=== PATIENT | female | born 1955 | race African-American/Black ===

== ENCOUNTER 2016-08-14 18:25 | Inpatient (IN) | payer OTHER ==
[~2016-08-14] VITALS: Ht 165.1 cm; Wt 62.6 kg
[2016-08-14 19:01] LABS: BASOPHILS # (AUTO) 0.1 /CMM (0.0-0.2); BASOPHILS % (AUTO) 0.5 % (0.0-2.0); DIFF TOTAL % 100 %; EOSINOPHILS # (AUTO) 0.2 /CMM (0.0-0.7); EOSINOPHILS % (AUTO) 1.5 % (0.0-6.0); HEMATOCRIT 35 % (33-45); HEMOGLOBIN 11.9 g/dL (11.5-14.8); LYMPHOCYTES # (AUTO) 0.8 /CMM (0.8-4.8); LYMPHOCYTES % (AUTO) 6.2 % (20.0-44.0); MEAN CORPUSCULAR HEMOGLOBIN 30 PG (26.0-33.0); MEAN CORPUSCULAR HGB CONC 34 g/dl (31.0-36.0); MEAN CORPUSCULAR VOLUME 91 fL (82-100); MONOCYTES # (AUTO) 0.8 /CMM (0.1-1.30); MONOCYTES % (AUTO) 5.9 % (2.0-12.0); NEUTROPHILS # (AUTO) 11.2 /CMM (1.8-8.9); NEUTROPHILS % (AUTO) 85.9 % (43.0-81.0); PLATELET COUNT (AUTO) 226 /CMM (150-450); RED BLOOD CELL COUNT(AUTO) 3.91 MIL/uL (4.0-5.2); WHITE BLOOD COUNT (AUTO) 13.1 K/uL (4.3-11.0)
[2016-08-14 19:12] LABS: CALCIUM, SERUM 8.8 mg/dL (8.5-10.1); CREATININE 6.5 mg/dL (0.6-1.3); POTASSIUM 5.4 mmol/L (3.5-5.1)
[2016-08-14] MEDS ORDERED: HYDROCODONE/APAP 5/325MG 1 EACH TABLET PO PRN (19:30)
[2016-08-14] MEDS ORDERED: Z GUARD REMEDY 2 OZ OINT TP PRN (19:30)
[2016-08-14] MEDS ORDERED: ONDANSETRON HCL/PF 4 MG/2 ML VIAL IVP PRN (19:30)
[2016-08-14] MEDS ORDERED: ZOLPIDEM TARTRATE 5 MG TABLET PO PRN (19:30)
[2016-08-14] MEDS ORDERED: ACETAMINOPHEN 325 MG TABLET PO PRN (19:30)
[2016-08-14 20:18] LABS: INR 1.13 (0.87-1.13); PARTIAL THROMBOPLASTIN TIME > 170 SEC (23-34); PROTHROMBIN TIME 12.2 SECS (9.5-12.7)
[2016-08-14 21:28] VITALS: BP 120/64
[2016-08-14] MEDS ORDERED: CLONIDINE HCL 0.1 MG TABLET PO PRN (22:30)
[2016-08-14] MEDS ORDERED: INSULIN REGULAR, HUMAN 100 UNIT/ML 3 ML VIAL SQ PRN (22:30)
[2016-08-14] MEDS ORDERED: DEXTROSE 50%-WATER 50 ML DISP.SYRIN IV PRN (22:30)
[2016-08-14] MEDS ORDERED: SODIUM POLYSTYRENE SULFONATE 15 G/60 ML BOTTLE PO ONE (23:00)
[2016-08-14] MEDS ORDERED: PHYTONADIONE INJ 10 MG/1 ML AMPUL SQ ONE (23:00)
[2016-08-14] MEDS ORDERED: PHYTONADIONE INJ 10 MG/1 ML AMPUL ONE (23:13)
[2016-08-14] MEDS: BLOOD SUGAR DIAGNOSTIC 1 EACH STRIP IN SCH (23:19)
[2016-08-14] MEDS ORDERED: SODIUM POLYSTYRENE SULFONATE 15 G/60 ML BOTTLE ONE (23:22)
[2016-08-15] MEDS ORDERED: DOCU-170 PO (03:35)
[2016-08-15] MEDS ORDERED: DOCU100T2 PO (03:35)
[2016-08-15] MEDS ORDERED: OMEP20CA10 PO (03:35)
[2016-08-15] MEDS ORDERED: AMLO10TA4 PO (03:35)
[2016-08-15] MEDS ORDERED: FOLI1TAB16 PO (03:35)
[2016-08-15] MEDS ORDERED: IPRA3AMP IH (03:35)
[2016-08-15] MEDS ORDERED: DIPH-4 PO (03:35)
[2016-08-15] MEDS ORDERED: HYDR-4077 PO (03:35)
[2016-08-15] MEDS ORDERED: BENA20TA2 PO (03:35)
[2016-08-15] MEDS ORDERED: VIT1TABL46 PO (03:35)
[2016-08-15] MEDS ORDERED: RIFA300C4 PO (03:35)
[2016-08-15] MEDS ORDERED: CLON0.2T PO (03:35)
[2016-08-15] MEDS ORDERED: LORA1TAB82 PO (03:35)
[2016-08-15 04:00] VITALS: BP 134/65
[2016-08-15 07:07] LABS: BASOPHILS # (AUTO) 0.1 /CMM (0.0-0.2); BASOPHILS % (AUTO) 0.6 % (0.0-2.0); DIFF TOTAL % 100 %; EOSINOPHILS # (AUTO) 0.4 /CMM (0.0-0.7); EOSINOPHILS % (AUTO) 3.3 % (0.0-6.0); HEMATOCRIT 33 % (33-45); HEMOGLOBIN 11.1 g/dL (11.5-14.8); LYMPHOCYTES # (AUTO) 2.7 /CMM (0.8-4.8); LYMPHOCYTES % (AUTO) 23.2 % (20.0-44.0); MEAN CORPUSCULAR HEMOGLOBIN 31 PG (26.0-33.0); MEAN CORPUSCULAR HGB CONC 33 g/dl (31.0-36.0); MEAN CORPUSCULAR VOLUME 91 fL (82-100); MONOCYTES # (AUTO) 0.8 /CMM (0.1-1.30); MONOCYTES % (AUTO) 7.2 % (2.0-12.0); NEUTROPHILS # (AUTO) 7.6 /CMM (1.8-8.9); NEUTROPHILS % (AUTO) 65.7 % (43.0-81.0); PLATELET COUNT (AUTO) 212 /CMM (150-450); RED BLOOD CELL COUNT(AUTO) 3.63 MIL/uL (4.0-5.2); WHITE BLOOD COUNT (AUTO) 11.6 K/uL (4.3-11.0)
[2016-08-15 07:28] LABS: CALCIUM, SERUM 9.1 mg/dL (8.5-10.1); POTASSIUM 5.4 mmol/L (3.5-5.1)
[2016-08-15] MEDS: BLOOD SUGAR DIAGNOSTIC 1 EACH STRIP IN SCH ×4 (07:30→22:35)
[2016-08-15 07:32] LABS: CREATININE 7.5 mg/dL (0.6-1.3)
[2016-08-15 08:00] VITALS: BP 136/60
[2016-08-15] MEDS: PANTOPRAZOLE 40 MG VIAL IV SCH (10:02)
[2016-08-15] MEDS ORDERED: ALTEPLASE CATHFLO 2 MG/VIAL XX STA (13:47)
[2016-08-15] MEDS ORDERED: SODIUM POLYSTYRENE SULFONATE 15 G/60 ML BOTTLE PO ONE (15:00)
[2016-08-15 16:00] VITALS: BP 117/64
[2016-08-15 19:30] VITALS: BP 144/68
[2016-08-15 20:18] VITALS: BP 144/68
[2016-08-16] MEDS: BLOOD SUGAR DIAGNOSTIC 1 EACH STRIP IN SCH ×4 (06:18→21:48)
[2016-08-16 08:00] VITALS: BP 116/57
[2016-08-16 08:13] LABS: INR 1.05 (0.87-1.13); PROTHROMBIN TIME 11.3 SECS (9.5-12.7)
[2016-08-16 08:16] LABS: BASOPHILS # (AUTO) 0.1 /CMM (0.0-0.2); BASOPHILS % (AUTO) 0.6 % (0.0-2.0); DIFF TOTAL % 100 %; EOSINOPHILS # (AUTO) 0.7 /CMM (0.0-0.7); EOSINOPHILS % (AUTO) 7.7 % (0.0-6.0); HEMATOCRIT 32 % (33-45); HEMOGLOBIN 10.4 g/dL (11.5-14.8); LYMPHOCYTES # (AUTO) 2.4 /CMM (0.8-4.8); LYMPHOCYTES % (AUTO) 28.2 % (20.0-44.0); MEAN CORPUSCULAR HEMOGLOBIN 30 PG (26.0-33.0); MEAN CORPUSCULAR HGB CONC 33 g/dl (31.0-36.0); MEAN CORPUSCULAR VOLUME 91 fL (82-100); MONOCYTES # (AUTO) 0.7 /CMM (0.1-1.30); MONOCYTES % (AUTO) 7.8 % (2.0-12.0); NEUTROPHILS # (AUTO) 4.7 /CMM (1.8-8.9); NEUTROPHILS % (AUTO) 55.7 % (43.0-81.0); PLATELET COUNT (AUTO) 236 /CMM (150-450); RED BLOOD CELL COUNT(AUTO) 3.49 MIL/uL (4.0-5.2); WHITE BLOOD COUNT (AUTO) 8.5 K/uL (4.3-11.0)
[2016-08-16] MEDS: PANTOPRAZOLE 40 MG VIAL IV SCH (08:25)
[2016-08-16 08:38] LABS: CALCIUM, SERUM 8.9 mg/dL (8.5-10.1); POTASSIUM 3.9 mmol/L (3.5-5.1)
[2016-08-16] MEDS ORDERED: HEPARIN SODIUM, PORCINE 1,000 UNIT/ML VIAL ONE (12:02)
[2016-08-16] MEDS ORDERED: LIDOCAINE HCL/PF 1% 30 ML SDV ONE (12:03)
[2016-08-16] MEDS ORDERED: BACITRACIN ZINC OINT (15 GM) 15 GM TUBE TP ONE (13:31)
[2016-08-16 16:00] VITALS: BP 150/63
[2016-08-16 20:00] VITALS: BP 138/64
[2016-08-17 07:21] LABS: BASOPHILS % (AUTO) 0.5 % (0.0-2.0); DIFF TOTAL % 100 %; EOSINOPHILS # (AUTO) 0.5 /CMM (0.0-0.7); EOSINOPHILS % (AUTO) 5.3 % (0.0-6.0); HEMATOCRIT 30 % (33-45); HEMOGLOBIN 10.2 g/dL (11.5-14.8); LYMPHOCYTES # (AUTO) 1.6 /CMM (0.8-4.8); LYMPHOCYTES % (AUTO) 17.4 % (20.0-44.0); MEAN CORPUSCULAR HEMOGLOBIN 30 PG (26.0-33.0); MEAN CORPUSCULAR HGB CONC 34 g/dl (31.0-36.0); MEAN CORPUSCULAR VOLUME 90 fL (82-100); MONOCYTES # (AUTO) 0.7 /CMM (0.1-1.30); MONOCYTES % (AUTO) 7.8 % (2.0-12.0); NEUTROPHILS # (AUTO) 6.3 /CMM (1.8-8.9); PLATELET COUNT (AUTO) 242 /CMM (150-450); RED BLOOD CELL COUNT(AUTO) 3.38 MIL/uL (4.0-5.2); WHITE BLOOD COUNT (AUTO) 9.1 K/uL (4.3-11.0)
[2016-08-17] MEDS: BLOOD SUGAR DIAGNOSTIC 1 EACH STRIP IN SCH ×2 (07:30→12:00)
[2016-08-17 07:49] LABS: CALCIUM, SERUM 9.2 mg/dL (8.5-10.1); CREATININE 6.8 mg/dL (0.6-1.3); POTASSIUM 3.6 mmol/L (3.5-5.1)
[2016-08-17 08:00] VITALS: BP 120/50
[2016-08-17] MEDS: PANTOPRAZOLE 40 MG VIAL IV SCH (09:00)
[2016-08-17 16:00] VITALS: BP 116/53
== END 2016-08-17 18:43 | DRG 173 ==
LOC: ER 18:27 → TELE 20:27 → MED 08-15 11:37
PROVIDERS: ADMIT Internal Medicine; ATTEND Internal Medicine
PROC: 05PY03Z Removal of Infusion Device from Upper Vein, Open Approach (ICD-10-PCS; principal; 2016-08-16 12:59)
PROC: 05HM33Z Insertion of Infusion Device into Right Internal Jugular Vein, Percutaneous Approach (ICD-10-PCS; principal; 2016-08-16 12:59)
PROC: B513YZA Fluoroscopy of Right Jugular Veins using Other Contrast, Guidance (ICD-10-PCS; principal; 2016-08-16 12:59)
PROC: 5A1D00Z (ICD-10-PCS; principal; 2016-08-16 12:59)
DX: T82.41XA Breakdown (mechanical) of vascular dialysis catheter, initial encounter (principal); G93.40 Encephalopathy, unspecified; R53.2 Functional quadriplegia; N18.6 End stage renal disease; E87.2 Acidosis; Y84.1 Kidney dialysis as the cause of abnormal reaction of the patient, or of later complication, without mention of misadventure at the time of the procedure; Y92.9 Unspecified place or not applicable; Z99.2 Dependence on renal dialysis; I13.11 Hypertensive heart and chronic kidney disease without heart failure, with stage 5 chronic kidney disease, or end stage renal disease; E78.5 Hyperlipidemia, unspecified; K21.9 Gastro-esophageal reflux disease without esophagitis; E87.1 Hypo-osmolality and hyponatremia; J98.11 Atelectasis; E87.5 Hyperkalemia; D72.829 Elevated white blood cell count, unspecified; Y71.2 Prosthetic and other implants, materials and accessory cardiovascular devices associated with adverse incidents
CPT/HCPCS: 36415; 71010-TC; 80048-TC; 80061-TC; 82962-TC; 83735-TC; 84100-TC; 85025-TC; 85610-TC; 85730-TC; 87040-TC; 87081-TC; 90935-TC; A4606; A6402; C1750; C1769; C9113; J1644; J1815; J2997; J3430; J3490; Z7610

== ENCOUNTER 2019-11-04 15:37 | Inpatient (IN) | payer MEDICARE, OTHER ==
[~2019-11-04] VITALS: Ht 165.1 cm; Wt 60.0 kg
[~2019-11-04 15:37] MED LIST: AMLO10TA4 PO; BENA20TA9 PO; CLON0.2T PO; DIPH-4 PO; DOCU100C36 PO; DOCU100T2 PO; FOLI1TAB16 PO; HYDR-4077 PO; IPRA3AMP22 IH; LORA-259 PO; OMEP20CA15 PO; RIFA300C4 PO; VIT1TABL46 PO
--- NOTE | 2019-11-04 16:02 | NUR ---
Nohemi payton in [facility] - 11/04/19 at 1603 by BERNABE ANUP YOUSIF PRESENT FOR COMMUNICATION PURPOSES
--- NOTE | 2019-11-04 16:03 | NUR ---
ANUP CAREGIVER PRESENT FOR COMMUNICATION PURPOSES
[2019-11-04] MEDS ORDERED: ACETAMINOPHEN 650 MG/SUPP.RECT RC ONE ×2 (16:18→20:00)
[2019-11-04] MEDS: ACETAMINOPHEN ES 500 MG TABLET PO ONE ×2 (16:30→17:06)
--- NOTE | 2019-11-04 17:15 | NUR ---
CARLITO FROM [facility] TO ER BED 5. NON VERBAL. NOT IN RESP DISTRESS. BORUGHT IN FOR NON PRODUDCTIVE COUGH AND FEVER SINCE THIS MORNING. PER REPORT, PT HAD A TEMP OF 100.1. NO MEDS GIVEN. MD WAS AT BEDSIDE FOR EVAL. ORDERS RECEIVED NOTED AND CARRIED OUT. IV LINE OBTAINED ON L HAND 22G. URINE COLLECTED VIA IN AND OUT CATH WITH STRICT STERILE TECHNIQUE. EKG AND XRAY DONE AT BEDSIDE. COVID AND FLU SWAB DONE.
--- NOTE | 2019-11-04 17:20 | NUR ---
SENIOR MECHANICAL ENGINEER AT BEDSIDE FOR BLOOD DRAW
[2019-11-04 17:39] LABS: BASOPHILS % (AUTO) 0.4 % (0.0-2.0); EOSINOPHILS % (AUTO) 0.5 % (0.0-6.0); HEMATOCRIT 26 % (33-45); HEMOGLOBIN 8.4 g/dL (11.5-14.8); LYMPHOCYTES # (AUTO) 1.6 /CMM (0.8-4.8); LYMPHOCYTES % (AUTO) 39.3 % (20.0-44.0); MEAN CORPUSCULAR HGB CONC 33 g/dl (31.0-36.0); MEAN CORPUSCULAR VOLUME 89 fL (82-100); MONOCYTES # (AUTO) 0.5 /CMM (0.1-1.30); MONOCYTES % (AUTO) 13.5 % (2.0-12.0); NEUTROPHILS # (AUTO) 1.9 /CMM (1.8-8.9); NEUTROPHILS % (AUTO) 46.3 % (43.0-81.0); PLATELET COUNT (AUTO) 108 /CMM (150-450)
[2019-11-04 18:00] LABS: CREATININE 6.9 mg/dL (0.6-1.3); POTASSIUM 3.7 mmol/L (3.5-5.1)
[2019-11-04 18:03] LABS: D-DIMER 0.97 mg/L(FEU (0.17-0.50)
[2019-11-04 18:04] LABS: ALBUMIN 2.8 g/dL (3.4-5.0); BILIRUBIN,TOTAL 0.2 mg/dL (0.2-1.0); TOTAL PROTEIN, SERUM 6.8 g/dL (6.4-8.2)
--- NOTE | 2019-11-04 18:34 | NUR ---
BP NOTED AT 86/57 HR 58. MADE AWARE
[2019-11-04] MEDS ORDERED: INSU100V42 (18:45)
[2019-11-04] MEDS ORDERED: FOLI0.8C PO (18:45)
[2019-11-04] MEDS ORDERED: CLON1PAT TD (18:45)
[2019-11-04] MEDS ORDERED: CHOL400T11 PO (18:45)
[2019-11-04] MEDS ORDERED: QUET25TA PO (18:45)
[2019-11-04] MEDS ORDERED: SEVE2.4P PO (18:45)
[2019-11-04] MEDS ORDERED: APIX5TAB PO (18:45)
[2019-11-04] MEDS ORDERED: VIT1TABL46 PO (18:45)
[2019-11-04] MEDS ORDERED: DEXT15DR6 OP (18:45)
[2019-11-04] MEDS ORDERED: POLY17PO4 PO (18:45)
[2019-11-04] MEDS ORDERED: SODI100037 PO (18:45)
--- NOTE | 2019-11-04 18:48 | NUR ---
RT INFORMED OF ABG ORDER
[2019-11-04] MEDS ORDERED: CEFEPIME 1 GM in IV D5W 50 ML IV ONE (20:00)
[2019-11-04 20:04] LABS: APPEARANCE,URINE CLOUDY (CLEAR); BILIRUBIN,URINE NEGATIVE (NEGATIVE); BLOOD, URINE SMALL Ery/uL (NEGATIVE); COLOR,URINE YELLOW (YELLOW); KETONES,URINE NEGATIVE (NEGATIVE); LEUKOCYTE ESTERASE ,URINE LARGE (NEGATIVE); NITRITE, URINE NEGATIVE (NEGATIVE); PROTEIN,URINE 30 mg/dl (NEGATIVE); UGLUCOSE NEGATIVE (NEGATIVE); UROBILINOGEN,URINE 0.2 EU/dL (0.2)
[2019-11-04 20:13] LABS: BACTERIA,URINE Many /HPF (None Seen); SQUAMOUS EPITHELIAL CELL,UR Many /HPF (None Seen); WBC,URINE 81-100 /HPF (0-3)
[2019-11-04 20:17] LABS: C-REACTIVE PROTEIN 2.8 mg/dL (0.0-0.9)
[2019-11-04 20:19] LABS: ABG BASE EXCESS -4.4 mmol/L; ABG OXYGEN SATURATION 98.2 % (92.0-98.5); ABG PCO2 37.4 mmHg (35.0-45.0); ABG PH 7.359 (7.350-7.450); ABG PO2 147.9 mmHg (75.0-100.0); AaDO2 7.6 mmHg; COHb 0.4 % (0.5-1.5); MetHb 0.5 % (0.0-1.5); O2Hb 97.3 % (94.0-97.0); SITE, ABG Left Radial; VENT MODE, BG 2 LNC
--- NOTE | 2019-11-04 20:38 | NUR ---
UPGRADED TO JT PER HOSPITALIST, CALLED TO CHANGE BED
[2019-11-04] MEDS ORDERED: CEFEPIME 1 GM VIAL ONE (20:46)
--- NOTE | 2019-11-04 21:10 | NUR ---
REPORT GIVEN TO CLAUDE CASSIDY FOR EMILY.
--- NOTE | 2019-11-04 21:11 | NUR ---
JT RN NOTES REPORT RECEIVED FROM ED RN MARIA. AWAITING ADMISSION TO 115 WITH R/O COVID, DROPLET ISOLATION PRECAUTIONS
--- NOTE | 2019-11-04 21:31 | NUR ---
RECTAL TEMP 98.4
--- NOTE | 2019-11-04 21:32 | NUR ---
PT TRANSPORTED TO UNIT ON [facility] W/ EMT AND RN AT BEDSIDE. NAD NOTED
[2019-11-04 21:35] VITALS: BP 102/68
--- NOTE | 2019-11-04 21:35 | NUR ---
JT RN NOTES RECEIVED PT VIA KG FROM ED WITH RN MARIA. NAD. ON NC WITH 2L EMIGDIO WELL NO SOB. AOX0, NON-VERBAL WITH SPONTANEOUS EYE OPENING. PT PUT ON TELE MONITOR, WITH SR. INCONTINENT OF BOWEL AND URINE WITH DIAPER ON. PT IS BB. BUE WITH CONTRACTURES, BLE WITH SEVERE WEAKNESS. L UPPER THIGH NOTED TO HAVE HD CATH WITH DRESSING INTACT. L HAND WITH SL 22G. BED IN LOCKED AND IN LOWEST POSITION. ALL SAFETY MEASURES IN PLACE. WILL CONT TO MONITOR.
[2019-11-04] MEDS ORDERED: ZOLPIDEM TARTRATE 5 MG TABLET PO PRN (22:00)
[2019-11-04] MEDS ORDERED: Z GUARD REMEDY 2 OZ OINT TP PRN (22:00)
[2019-11-04] MEDS: CEFTRIAXONE 1 G in IV D5W 50 ML IV SCH (22:00)
[2019-11-04] MEDS ORDERED: DEXTROSE 50%-WATER 50 ML DISP.SYRIN IV PRN (22:30)
[2019-11-04] MEDS ORDERED: CEFTRIAXONE 1 G VIAL ONE (23:41)
[2019-11-05] VITALS: BP 121/61
[2019-11-05] MEDS: BLOOD SUGAR DIAGNOSTIC 1 EACH STRIP IN SCH ×4 (01:14→17:53)
[2019-11-05 04:00] VITALS: BP 132/66
--- NOTE | 2019-11-05 05:40 | NUR ---
0063 ANTONY DAY MADE AWARE OF BS 50. NO ORDER MADE. PATIENT ASYMPTOMATIC AND ABLE TO TOLERATE JUICE AND PUDDING. DENIES ANY DISCOMFORT. HOB ELEVATED AT ALL TIMES FOR ASPIRATION PRECAUTION. PATIENT IS BEING CLOSELY MONITORED.
[2019-11-05] MEDS: HYDROCODONE/APAP 5/325MG 1 EACH TABLET PO PRN ×2 (06:09→21:47)
--- NOTE | 2019-11-05 06:28 | NUR ---
0628 BS RE CHECKED AND OBTAINED 111MG/DL RESULT. PATIENT ASLEEP BUT EASILY AROUSABLE. NO SIGNS OF HYPOGLYCEMIA NOTED.
[2019-11-05 06:32] LABS: BASOPHILS % (AUTO) 0.5 % (0.0-2.0); EOSINOPHILS % (AUTO) 0.6 % (0.0-6.0); HEMATOCRIT 28 % (33-45); HEMOGLOBIN 9.2 g/dL (11.5-14.8); LYMPHOCYTES # (AUTO) 1.2 /CMM (0.8-4.8); LYMPHOCYTES % (AUTO) 25.1 % (20.0-44.0); MEAN CORPUSCULAR HGB CONC 33 g/dl (31.0-36.0); MEAN CORPUSCULAR VOLUME 88 fL (82-100); MONOCYTES # (AUTO) 0.5 /CMM (0.1-1.30); MONOCYTES % (AUTO) 10.4 % (2.0-12.0); NEUTROPHILS % (AUTO) 63.4 % (43.0-81.0); PLATELET COUNT (AUTO) 134 /CMM (150-450); WHITE BLOOD COUNT (AUTO) 4.8 K/uL (4.3-11.0)
--- NOTE | 2019-11-05 06:33 | NUR ---
JT RN NOTES PT IN BED. NO SOB, NAD. ON 2LPM O2 VIA NC. ON TELE MONITOR WITH SR. BARAHONA CATH BAG TO THE GRAVITY WITH 10CC, CLOUDY OUTPUT. NEW DIET ORDER FROM [facility] VERDUGO FOR RENAL/PUREE DIET IN PLACE. BED IN LOWEST POSITION. ALL SAFETY MEASURES IN PLACE. WILL ENDORSE TO THE ONCOMING RN
[2019-11-05 07:17] LABS: CALCIUM, SERUM 8.6 mg/dL (8.5-10.1); MAGNESIUM 2.4 mg/dL (1.8-2.4); PHOSPHORUS 5.8 mg/dL (2.5-4.9); POTASSIUM 4.1 mmol/L (3.5-5.1)
[2019-11-05 07:30] LABS: CREATININE 7.8 mg/dL (0.6-1.3)
[2019-11-05 08:00] VITALS: BP 90/43
[2019-11-05 12:00] VITALS: BP 116/62
[2019-11-05 16:00] VITALS: BP 116/57
[2019-11-05 20:00] VITALS: BP 112/45
[2019-11-05] MEDS ORDERED: CEFTRIAXONE 1 G VIAL ONE (21:32)
[2019-11-05] MEDS: CEFTRIAXONE 1 G in IV D5W 50 ML IV SCH (21:48)
--- NOTE | 2019-11-05 22:20 | NUR ---
SCRATCH BRUSHER NOTES CEFTRIAXONE DUE AT 2200. THE IVPB IN THE CASSETTE IS DAMAGED AND LEAKING. WENT TO ED AND OBTAINED THE EXACT MED PRESCRIBED FROM MARIA PETERS RN. ADMINISTERED ON TIME, EMIGDIO WELL. WILL CONT TO MONITOR
[2019-11-06] VITALS (10 sets, daily range): BP systolic 100–144; BP diastolic 38–77
[2019-11-06] MEDS: BLOOD SUGAR DIAGNOSTIC 1 EACH STRIP IN SCH ×5 (00:28→23:28)
[2019-11-06 06:46] LABS: BASOPHILS % (AUTO) 0.5 % (0.0-2.0); EOSINOPHILS % (AUTO) 0.2 % (0.0-6.0); HEMATOCRIT 25 % (33-45); HEMOGLOBIN 8.1 g/dL (11.5-14.8); LYMPHOCYTES # (AUTO) 1.3 /CMM (0.8-4.8); LYMPHOCYTES % (AUTO) 25.8 % (20.0-44.0); MEAN CORPUSCULAR HGB CONC 33 g/dl (31.0-36.0); MEAN CORPUSCULAR VOLUME 88 fL (82-100); MONOCYTES # (AUTO) 0.5 /CMM (0.1-1.30); MONOCYTES % (AUTO) 10.5 % (2.0-12.0); NEUTROPHILS # (AUTO) 3.3 /CMM (1.8-8.9); PLATELET COUNT (AUTO) 118 /CMM (150-450); RED BLOOD CELL COUNT(AUTO) 2.81 MIL/uL (4.0-5.2); WHITE BLOOD COUNT (AUTO) 5.2 K/uL (4.3-11.0)
[2019-11-06 06:55] LABS: CALCIUM, SERUM 8.2 mg/dL (8.5-10.1); MAGNESIUM 2.4 mg/dL (1.8-2.4); PHOSPHORUS 6.4 mg/dL (2.5-4.9); POTASSIUM 3.9 mmol/L (3.5-5.1)
[2019-11-06 07:00] LABS: CREATININE 10.2 mg/dL (0.6-1.3)
--- NOTE | 2019-11-06 07:25 | NUR ---
Rn opening note: Received patient in bed and asleep. appears comfortable and relaxed. On cont. o2 via NC at @2lpm with 95% noted. Not in respiratory distress. NO SOB noted. IV sites clean, dry, patent and intact. Tele monitoring showing sinus rhythm noted. No pain noted. call light in reach. Bed locked, low and at semi-munguia's position. side rails up x3. safety ensured and observed. will continue to monitor.
[2019-11-06] MEDS ORDERED: FEE PK DOSING 1 MIN EA MC ONE (13:14)
[2019-11-06] MEDS ORDERED: VANCOMYCIN 500 MG in IV D5W 100 ML IV PRN (13:30)
[2019-11-06] MEDS ORDERED: EPOETIN ALFA (10,000 UNIT) 10,000 UNIT/ML VIAL IV ONE (13:30)
--- NOTE | 2019-11-06 16:04 | NUR ---
rn note: spoke to sergo from pharmacy about patient's hemodialysis being moved later tonight. Acknowledged information and informed to endorse to oncoming shift for them to administer medication post HD.
[2019-11-06] MEDS ORDERED: VANCOMYCIN 1 GM in IV D5W 250 ML IV ONE (18:00)
--- NOTE | 2019-11-06 19:12 | NUR ---
Rn closing note: Patient in bed and asleep. appears comfortable and relaxed. On cont. o2 via NC at @2lpm with 95% noted. Not in respiratory distress. NO SOB noted. IV sites clean, dry, patent and intact. Arguelles catheter draining yellow urine. No pain noted. hemodialysis to be done on next shift. blood culture during HD to be collected. 1GM Vancomycin IV dose to be given after HD. call light in reach. Bed locked, low and at semi-munguia's position. side rails up x3. safety ensured and observed. Endorsed to oncoming shift for EMILY.
--- NOTE | 2019-11-06 19:15 | NUR ---
CLAUDE NOTE: CONFIRMED WITH BLUE FROM PHARMACY THAT 1GM DOSE (LOADING DOSE) OF VANCOMYCIN IS TO BE GIVEN TO PATIENT AFTER HD AND NOT THE PRN 500MG DOSE. ENDORSED TO CLAUDE LUNA
--- NOTE | 2019-11-06 19:22 | NUR ---
RN medsurg opening notes Received Pt from morning nurse. Pt is resting in bed comfortably. Respiration is normal in 2 L NC. No SOB. No S/S of distress noted. Per AM nurse Pt will have dialysis tonight. Per AM nurse explained that give vanco 1 gm that due at 1800 after Pt is done with dialysis. IV sites at L wrist# 22 is intact, patent and SL. IV sites at R lat thigh# 18 is clean, intact and patent. Arguelles cath is intact and patent. Safety precautions is maintained. Bed at low position, brakes locked, side rails upX3 and call light is within reach. Will continue to monitor.
--- NOTE | 2019-11-06 19:22 | NUR ---
RN medsurg opening notes Received Pt from morning nurse. Pt is resting in bed comfortably. Respiration is normal in 2 L NC. No SOB.No S/S of distress noted. Per AM nurse Pt will have dialysis tonight. Per AM nurse explained that give vanco 1 gm that due at 1800 after Pt is done with dialysis. IV sites at L wrist# 22 is intact, patent and SL>
[2019-11-06] MEDS: ACETAMINOPHEN 325 MG TABLET PO PRN (20:22)
--- NOTE | 2019-11-06 20:22 | NUR ---
RN medsurg notes Pt's temp is 102.4. Administered tylenol 650 mg/po as ordered for fever. Cooling measures is applied. Will continue to monitor.
--- NOTE | 2019-11-06 20:25 | NUR ---
CLAUDE brownlee notes Pt is having dialysis.
--- NOTE | 2019-11-06 22:28 | NUR ---
RN medsurg notes Pt is done with dialysis. Dialysis nurse is CLAUDE [place]. Pt tolerated activity well. HD output 2 L (2000ml). BP 141/47. Will continue to monitor.
[2019-11-06] MEDS: IV NS 0.9% 1,000 ML IV PRN (22:37)
[2019-11-06] MEDS: CEFTRIAXONE 1 G in IV D5W 50 ML IV SCH (22:59)
--- NOTE | 2019-11-07 00:10 | NUR ---
RN medsurg notes Report given to CLAUDE Page.
--- NOTE | 2019-11-07 01:22 | NUR ---
RN leiasurdaisy notes Transferred Pt to room 328-1.
[2019-11-07 01:30] VITALS: BP 118/89
--- NOTE | 2019-11-07 01:30 | NUR ---
RN NOTES RECEIVED PT. FROM JT, AWAKE NON-VERBAL, QUADRIPLEGIC, IV LINE IN LEFT LATERAL THIGH WITH MD ORDER, F/C IN PLACE DRAINING SMALL AMOUNT OF URINE PT, IS ON HEMODIALYSIS, NOT IN DISTRESS, NO PAIN NOTED, WILL CONTINUE TO MONITOR
[2019-11-07 03:12] LABS: C-REACTIVE PROTEIN 8.2 mg/dL (0.0-0.9)
[2019-11-07] MEDS: BLOOD SUGAR DIAGNOSTIC 1 EACH STRIP IN SCH ×3 (07:12→18:15)
--- NOTE | 2019-11-07 07:12 | NUR ---
RN NOTES AWAKE, NON-VERBAL, MORNING CARE RENDERED, LATEST TEMP 99.7, NOT IN DISTRESS, NO PAIN NOTED, [id number], PT. NEEDS ATTEMPTED
--- NOTE | 2019-11-07 07:15 | NUR ---
MS RN NOTES PATIENT LYING COMFORTABLE IN BED AWAKE, NON VERBAL.HOB ELEVATED. NO ACUTE DISTRESS NOTED. BREATHING UNLABORED. IV ACCESS PATENT AND INTACT, NO REDNESS , NO SWELLING NOTED. BARAHONA CATHETER INTACT DRAINING WELL. SAFETY MEASURES IN PLACE. CALL LIGHT WITHIN REACH. WILL CONTINUE TO MONITOR ACCORDINGLY.
[2019-11-07 07:59] VITALS: BP 130/68
[2019-11-07 08:41] LABS: CALCIUM, SERUM 9.2 mg/dL (8.5-10.1)
[2019-11-07 08:42] LABS: CREATININE 8.2 mg/dL (0.6-1.3)
[2019-11-07 09:03] LABS: BASOPHILS % (AUTO) 0.2 % (0.0-2.0); HEMATOCRIT 27 % (33-45); HEMOGLOBIN 8.9 g/dL (11.5-14.8); LYMPHOCYTES # (AUTO) 1.1 /CMM (0.8-4.8); LYMPHOCYTES % (AUTO) 17.7 % (20.0-44.0); MEAN CORPUSCULAR HGB CONC 33 g/dl (31.0-36.0); MEAN CORPUSCULAR VOLUME 88 fL (82-100); MONOCYTES # (AUTO) 0.7 /CMM (0.1-1.30); NEUTROPHILS # (AUTO) 4.5 /CMM (1.8-8.9); NEUTROPHILS % (AUTO) 71.1 % (43.0-81.0); PLATELET COUNT (AUTO) 128 /CMM (150-450); RED BLOOD CELL COUNT(AUTO) 3.11 MIL/uL (4.0-5.2); WHITE BLOOD COUNT (AUTO) 6.4 K/uL (4.3-11.0)
[2019-11-07] MEDS: ACETAMINOPHEN 325 MG TABLET PO PRN (15:41)
--- NOTE | 2019-11-07 15:41 | NUR ---
MS RN NOTES PATIENT NOTED WITH TEMPERATURE OF 101.6, TYLENOL GIVEN ORDERED FOR FEVER. NO ACUTE DISTRESS NOTED. COOLING MEASURES PROVIDED. WILL CONTINUE TO MONITOR PATIENT.
[2019-11-07 16:06] VITALS: BP 106/50
[2019-11-07] MEDS: IV NS 0.9% 1,000 ML IV PRN (16:11)
--- NOTE | 2019-11-07 18:30 | NUR ---
MS RN NOTES TEMPERATURE RECHECKED NOTED 99.1
--- NOTE | 2019-11-07 19:00 | NUR ---
MS RN NOTES PATIENT LYING COMFORTABLY IN BED AWAKE, NON VERBAL.HOB ELEVATED. NO ACUTE DISTRESS NOTED. BREATHING UNLABORED. IV ACCESS PATENT AND INTACT, NO REDNESS , NO SWELLING NOTED. BARAHONA CATHETER INTACT DRAINING WELL. NEEDS ATTENDED AND ANTICIPATED. KEPT CLEAN DRY AND COMFORTABLE. SAFETY MEASURES IN PLACE. CALL LIGHT WITHIN REACH. WILL ENDORSE TO NIGHT NURSE FOR CONTINUITY OF CARE.
[2019-11-07 20:00] VITALS: BP 145/67
--- NOTE | 2019-11-07 20:23 | NUR ---
MS/TELE/RN AT INITIAL [id number], RECEIVED PATIENT APPEAR SLEEPING, APPEAR COMFORTABLE, NO DISTRESS NOTED, BREATHING EVEN AND UNLABORED, CALL LIGHT IN REACH. WILL MONITOR.
[2019-11-07] MEDS: CEFTRIAXONE 1 G in IV D5W 50 ML IV SCH (21:58)
--- NOTE | 2019-11-07 22:18 | NUR ---
MS/TELE/RN PATIENT VOMITED DARK BROWN EMESIS, ZOFRAN 4 MG IVP WAS GIVEN ORDERED, WILL MONITOR.
[2019-11-07] MEDS: ONDANSETRON HCL/PF 4 MG/2 ML VIAL IVP PRN (23:10)
--- NOTE | 2019-11-07 23:23 | NUR ---
MS/TELE/CLAUDE HENSLEY DNP, MADE AWARE ABOUT VOMITING COFFEE GROUND EMESIS, PER SHELLIE, SHE WILL ORDER KUB.
[2019-11-08] MEDS: BLOOD SUGAR DIAGNOSTIC 1 EACH STRIP IN SCH ×5 (00:34→23:33)
[2019-11-08] MEDS: ONDANSETRON HCL/PF 4 MG/2 ML VIAL IVP PRN ×2 (04:35→19:40)
--- NOTE | 2019-11-08 06:55 | NUR ---
MS/TELE/RN PATIENT APPEAR SLEEPING AT THIS TIME, APPEAR COMFORTABLE, NO SIGNS OF DISTRESS NOTED, CALL LIGHT IN REACH. ALL NEEDS ATTENDED AT THIS TIME, WILL CONTINUE TO MONITOR.
[2019-11-08 07:57] LABS: BASOPHILS % (AUTO) 0.2 % (0.0-2.0); HEMATOCRIT 30 % (33-45); LYMPHOCYTES # (AUTO) 0.6 /CMM (0.8-4.8); MEAN CORPUSCULAR HGB CONC 33 g/dl (31.0-36.0); MEAN CORPUSCULAR VOLUME 87 fL (82-100); MONOCYTES # (AUTO) 0.9 /CMM (0.1-1.30); NEUTROPHILS # (AUTO) 8.2 /CMM (1.8-8.9); NEUTROPHILS % (AUTO) 84.8 % (43.0-81.0); PLATELET COUNT (AUTO) 160 /CMM (150-450); RED BLOOD CELL COUNT(AUTO) 3.46 MIL/uL (4.0-5.2); WHITE BLOOD COUNT (AUTO) 9.7 K/uL (4.3-11.0)
[2019-11-08 08:00] VITALS: BP 159/76
[2019-11-08 08:13] LABS: CALCIUM, SERUM 9.4 mg/dL (8.5-10.1); MAGNESIUM 2.3 mg/dL (1.8-2.4); PHOSPHORUS 6.5 mg/dL (2.5-4.9)
[2019-11-08 08:23] LABS: CREATININE 9.8 mg/dL (0.6-1.3)
--- NOTE | 2019-11-08 11:15 | NUR ---
patient vomited coffee ground color moderate amount of emesis. Dr. Ernandez notified. Pre dr. Ernandez new orders; NPO exept meds and he will notify GI batch tank controller for consultation
[2019-11-08 16:00] VITALS: BP 105/55
[2019-11-08] MEDS: IV NS 0.9% 1,000 ML IV PRN (16:08)
--- NOTE | 2019-11-08 18:49 | NUR ---
Patient non-verbal, bed bound. No acute distress noted, VS are stable and within base line , afebrile. Bedside HD with no output. IV fluid running as ordered. Patient had 2 episodes of vomiting coffee ground emesis. Aspiration precautions in place. Patient currently NPO status until GI evaluation. All needs attended. Patient kept clean and dry. Will endorse to next shift for EMILY.
[2019-11-08 19:30] VITALS: BP 138/84
[2019-11-08] MEDS: ACETAMINOPHEN 325 MG TABLET PO PRN (19:35)
--- NOTE | 2019-11-08 19:35 | NUR ---
MS RN NOTES PATIENT NONVERBAL, ALERT AND ORIENTED X 0. BREATHING EVEN AND UNLABORED ON 2L NC. SHOWS NO SIGNS OF ACUTE RESPIRATORY DISTRESS, NO ACUTE PAIN. FC IS CLEAN DRY AND INTACT, FLOWING URINE. L FEMORAL HD CATH IS CLEAN DRY AND DRESSING IS INTACT. IV ON R LATERAL LEG 18 IS RUNNING NS AT 60ML/HR. SHOWS NO SIGNS OF INFILTRATION, NO REDNESS. SAFETY PRECAUTIONS IN PLACE. BED IN LOWEST POSITION, LOCKED, AND CALL LIGHT KEPT WITHIN REACH. WILL CONTINUE TO MONITOR.
[2019-11-08 20:00] VITALS: BP 138/84
--- NOTE | 2019-11-08 20:50 | NUR ---
MS RN NOTES PT TEMP 101.2 AT 1930. GIVEN TYLENOL AT 1940 AND COOLING MEASURES. 2049 TEMP 98.2. WILL CONTINUE TO MONITOR.
[2019-11-09] VITALS: BP 103/60
[2019-11-09 03:53] VITALS: BP 129/59
--- NOTE | 2019-11-09 06:25 | NUR ---
MS RN NOTES CALLED PERSON TO NOTIFY, RECEIVED CONSENT FOR EGD, ALEM ARCE WITNESS FOR CONSENT.
--- NOTE | 2019-11-09 06:39 | NUR ---
MS RN NOTES PATIENT NONVERBAL, ALERT AND ORIENTED X 0. BREATHING EVEN AND UNLABORED ON 2L NC. SHOWS NO SIGNS OF ACUTE RESPIRATORY DISTRESS, NO ACUTE PAIN. FC IS CLEAN DRY AND INTACT, FLOWING URINE. L FEMORAL HD CATH IS CLEAN DRY AND DRESSING IS INTACT. IV ON R LATERAL LEG 18 NS RUNNING NS AT 60ML/HR. SHOWS NO SIGNS OF INFILTRATION, NO REDNESS. ALL DUE MEDICATIONS GIVEN. SAFETY PRECAUTIONS IN PLACE. BED IN LOWEST POSITION, LOCKED, AND CALL LIGHT KEPT WITHIN REACH. WILL ENDORSE TO ONCOMING NURSE.
[2019-11-09] MEDS: BLOOD SUGAR DIAGNOSTIC 1 EACH STRIP IN SCH ×3 (06:46→16:59)
--- NOTE | 2019-11-09 07:30 | NUR ---
PT RECEIVED RESTING COMFORTABLY IN BED. NO S/S OR C/O PAIN OR DISTRESS NOTED. SIDE RAILS UP X2, CALL LIGHT LEFT WITHIN REACH. WILL CONTINUE PLAN OF CARE.
[2019-11-09 08:00] VITALS: BP 139/71
[2019-11-09 08:35] LABS: BASOPHILS % (AUTO) 0.1 % (0.0-2.0); HEMATOCRIT 29 % (33-45); HEMOGLOBIN 9.4 g/dL (11.5-14.8); LYMPHOCYTES # (AUTO) 0.5 /CMM (0.8-4.8); MEAN CORPUSCULAR HGB CONC 33 g/dl (31.0-36.0); MEAN CORPUSCULAR VOLUME 87 fL (82-100); MONOCYTES # (AUTO) 0.6 /CMM (0.1-1.30); MONOCYTES % (AUTO) 6.2 % (2.0-12.0); NEUTROPHILS # (AUTO) 8.6 /CMM (1.8-8.9); NEUTROPHILS % (AUTO) 88.7 % (43.0-81.0); PLATELET COUNT (AUTO) 211 /CMM (150-450); RED BLOOD CELL COUNT(AUTO) 3.31 MIL/uL (4.0-5.2); WHITE BLOOD COUNT (AUTO) 9.7 K/uL (4.3-11.0)
[2019-11-09 09:04] LABS: CALCIUM, SERUM 9.9 mg/dL (8.5-10.1); MAGNESIUM 2.4 mg/dL (1.8-2.4); PHOSPHORUS 6.2 mg/dL (2.5-4.9); POTASSIUM 4.4 mmol/L (3.5-5.1)
[2019-11-09 09:52] LABS: IRON, SERUM 64 ug/dl (50-175); TOTAL IRON BINDING CAPACITY 129 ug/dl (250-450)
[2019-11-09 11:18] LABS: FERRITIN 9428 ng/mL (8-388)
[2019-11-09] MEDS ORDERED: PANTOPRAZOLE 40 MG VIAL IV SCH (14:00)
[2019-11-09 16:00] VITALS: BP 134/84
[2019-11-09] MEDS: ACETAMINOPHEN 325 MG TABLET PO PRN (16:23)
[2019-11-09] MEDS: CLONIDINE HCL 0.1MG/24H PTWK 1 EA PATCH TD SCH (16:32)
[2019-11-09] MEDS: SUCRALFATE 1 G TABLET PO SCH ×2 (16:54→21:24)
--- NOTE | 2019-11-09 18:48 | NUR ---
CHANGE OF SHIFT REPORT PT RESTING COMFORTABLY IN BED WITH EYES CLOSED. NO S/S OR C/O PAIN OR DISTRESS NOTED. SIDE RAILS UP X2, CALL LIGHT LEFT WITHIN REACH. PT KEPT CLEAN, DRY, AND COMFORTABLE. NO SIGNIFICANT CHANGES SINCE PREVIOUS SHIFT.
--- NOTE | 2019-11-09 19:50 | NUR ---
MS RN OPENING NOTES RECEIVED PATIENT RESTING IN BED COMFORTABLY; NONVERBAL; BREATHING EVEN AND UNLABORED; PATIENT ON 2L NC, TOLERATING WELL; NO SOB NOTED; R LATERAL LEG # 18 INTACT AND PATENT; FLUSHING WELL; NO S/S OF REDNESS OR INFILTRATION; PATIENT RECEIVING NS @ 60ML/HR, TOLERATING IVF WELL; SAFETY PRECAUTIONS IN PLACE; BED LOCKED IN LOW POSITION; SIDE RAILS X2; CALL LIGHT WITHIN REACH; WILL CONTINUE TO MONITOR
[2019-11-09 20:00] VITALS: BP 129/96
[2019-11-09 20:32] VITALS: BP 129/96
[2019-11-10] MEDS: BLOOD SUGAR DIAGNOSTIC 1 EACH STRIP IN SCH ×5 (00:13→23:24)
[2019-11-10] MEDS: IV NS 0.9% 1,000 ML IV PRN (02:29)
--- NOTE | 2019-11-10 05:12 | NUR ---
MS RN NOTES PATIENT TEMPERATURE 100.8F; TRIED TO OFFER PATIENT PUDDING TO ASSESS IF PATIENT WILL TAKE TYLENOL CRUSHED AND MIXED WITH PUREED SNACKS; PATIENT REFUSED TO EAT; ICE PACKS APPLIED AND COOLING MEASURES DONE; WILL REASSESS
--- NOTE | 2019-11-10 06:14 | NUR ---
MS RN NOTES PATIENT TEMPERATURE 99.1F, WILL CONTINUE TO MONITOR;
--- NOTE | 2019-11-10 06:45 | NUR ---
MS RN CLOSING NOTES PATIENT RESTING IN BED COMFORTABLY; A/OX1, NONVERBAL; BREATHING EVEN AND UNLABORED; NO SOB NOTED; PATIENT TOLERATING 2L NC WELL; R LATERAL LEG #18 NS @ 60ML/HR; PATIENT TOLERATING IVF WELL; BARAHONA CATH IN PLACE, FLOWING YELLOW OUTPUT; PATIENT TEMPERATURE SLIGHTLY ELEVATED, COOLING MEASURES ENFORCED; RECENT TEMPERATURE 99.1, PATIENT REFUSING TO EAT/TAKE MEDS AT THIS TIME; WILL INFORM ONCOMING NURSE; ALL NEEDS RENDERED; SAFETY PRECAUTIONS IN PLACE; BED LOCKED IN LOW POSITION; CALL LIGHT WITHIN REACH; WILL ENDORSE EMILY TO ONCOMING NURSE
[2019-11-10] MEDS: SUCRALFATE 1 G TABLET PO SCH ×4 (07:30→21:07)
--- NOTE | 2019-11-10 07:33 | NUR ---
RN OPENING NOTES: RECEIVED PATIENT AOX1, BEDBOUND, NON VERBAL. COOLING MEASURES IN PLACE. WILL ATTEMPT TO ADMINISTER TYLENOL WITH BREAKFAST. LAST TEMP WAS 99.1. BARAHONA CATHETER INTACT. CURRENTLY DRAINING YELLOW WITH RED/PINK SEDIMENT. R LATERAL LEG WITH 18G PATENT AND INTACT FLOWING AT 60ML/HR. PATIENT BREATHING IS EVEN AND UNLABORED. ON 2L O2 VIA NC. SAFETY PRECAUTIONS IN PLACE. BED IN LOW AND LOCKED POSITION WITH 2 SIDE RAILS UP FOR SAFETY. CALL LIGHT WITHIN REACH. WILL CONTINUE TO MONITOR.
[2019-11-10 08:00] VITALS: BP 144/73
--- NOTE | 2019-11-10 08:23 | NUR ---
RN NOTE: REFUSAL UNABLE TO ADMINISTER AM MEDICATION OR TYLENOL. PATIENT IS REFUSING TO EAT WELL.
[2019-11-10] MEDS: PANTOPRAZOLE 40 MG TABLET.DR PO SCH (11:30)
[2019-11-10 11:37] LABS: BASOPHILS % (AUTO) 0.1 % (0.0-2.0); EOSINOPHILS % (AUTO) 0.1 % (0.0-6.0); HEMATOCRIT 23 % (33-45); HEMOGLOBIN 7.8 g/dL (11.5-14.8); LYMPHOCYTES # (AUTO) 0.7 /CMM (0.8-4.8); LYMPHOCYTES % (AUTO) 7.5 % (20.0-44.0); MEAN CORPUSCULAR HGB CONC 33 g/dl (31.0-36.0); MEAN CORPUSCULAR VOLUME 87 fL (82-100); MONOCYTES # (AUTO) 0.5 /CMM (0.1-1.30); MONOCYTES % (AUTO) 6.3 % (2.0-12.0); NEUTROPHILS # (AUTO) 7.5 /CMM (1.8-8.9); PLATELET COUNT (AUTO) 204 /CMM (150-450); RED BLOOD CELL COUNT(AUTO) 2.68 MIL/uL (4.0-5.2); WHITE BLOOD COUNT (AUTO) 8.7 K/uL (4.3-11.0)
[2019-11-10 11:49] LABS: CALCIUM, SERUM 9.5 mg/dL (8.5-10.1); MAGNESIUM 2.5 mg/dL (1.8-2.4); POTASSIUM 3.8 mmol/L (3.5-5.1)
[2019-11-10 11:53] LABS: CREATININE 10.9 mg/dL (0.6-1.3)
[2019-11-10 16:00] VITALS: BP 115/56
[2019-11-10] MEDS: NEPRO VAN 237 ML CAN PO SCH (17:00)
[2019-11-10] MEDS ORDERED: NEPRO VAN 237 ML CAN PO PRN (17:00)
--- NOTE | 2019-11-10 18:22 | NUR ---
RN CLOSING NOTE; PATIENT AOX1, BEDBOUND, NON VERBAL. AFEBRILE. BARAHONA CATHETER INTACT. HD TODAY WITH 720 OUTPUT. LAST BLOOD GLUCOSE 70. R LATERAL LEG WITH 18G PATENT AND INTACT. PATIENT BREATHING IS EVEN AND UNLABORED. ON 2L O2 VIA NC. SAFETY PRECAUTIONS IN PLACE. BED IN LOW AND LOCKED POSITION WITH 2 SIDE RAILS UP FOR SAFETY. CALL LIGHT WITHIN REACH. WILL CONTINUE TO MONITOR. Addendum: 11/10/19 at 1827 by RUY HIGH RN WILL ENDORSE CARE TO MOLD MAKING SUPERVISOR RN FOR EMILY
--- NOTE | 2019-11-10 19:10 | NUR ---
Rn medsurg opening notes Received Pt from morning nurse. Pt is non verbal. Pt is resting in bed comfortably. Respiration is normal in 2 L NC. No SOB. No S/S of distress noted. IV sites at R lateral leg# 18 is clean, intact, patent and SL. Arguelles cath is intact, and patent. Safety precautions is maintained. Bed at low position, brakes locked, side rails upX2 and call light is within reach. Will continue to monitor.
[2019-11-10 19:17] LABS: HEMOGLOBIN 9.8 g/dL (11.5-14.8)
[2019-11-10 20:00] VITALS: BP 120/64
[2019-11-10] MEDS: ACETAMINOPHEN 325 MG TABLET PO PRN (20:08)
--- NOTE | 2019-11-10 20:08 | NUR ---
RN medsurg notes Pt's temp is 102.7. Administered tylenol 650 mg/po as ordered for fever. Cooling measures is applied. Will continue to monitor.
[2019-11-10 20:38] VITALS: BP 120/64
--- NOTE | 2019-11-10 21:42 | NUR ---
RN maria notes Pt's temp is 98.3. Will continue to monitor.
[2019-11-11] MEDS: BLOOD SUGAR DIAGNOSTIC 1 EACH STRIP IN SCH ×3 (05:01→18:35)
--- NOTE | 2019-11-11 07:20 | NUR ---
RN medsurg closing notes Pt is non verbal. Pt is resting in bed comfortably. Respiration is normal in 2 L NC. No SOB. No S/S of distress noted. Afebrile and stable condition. Routine meds were given as ordered. IV sites at R lateral leg# 18 is clean, intact, patent and SL. Arguelles cath is intact, and patent. Kept Pt clean, dry and comfortable. Safety precautions is maintained. Bed at low position, brakes locked, side rails upX2 and call light is within reach. Will endorse to morning nurse for EMILY.
[2019-11-11] MEDS: SUCRALFATE 1 G TABLET PO SCH ×5 (07:30→22:04)
[2019-11-11 08:00] VITALS: BP 135/67
[2019-11-11] MEDS: NEPRO VAN 237 ML CAN PO SCH ×2 (08:00→17:00)
[2019-11-11 08:40] LABS: BASOPHILS % (AUTO) 0.1 % (0.0-2.0); EOSINOPHILS % (AUTO) 0.1 % (0.0-6.0); HEMATOCRIT 31 % (33-45); HEMOGLOBIN 9.8 g/dL (11.5-14.8); LYMPHOCYTES # (AUTO) 0.8 /CMM (0.8-4.8); LYMPHOCYTES % (AUTO) 10.7 % (20.0-44.0); MEAN CORPUSCULAR HGB CONC 31 g/dl (31.0-36.0); MEAN CORPUSCULAR VOLUME 87 fL (82-100); MONOCYTES # (AUTO) 0.5 /CMM (0.1-1.30); MONOCYTES % (AUTO) 6.7 % (2.0-12.0); NEUTROPHILS # (AUTO) 6.5 /CMM (1.8-8.9); NEUTROPHILS % (AUTO) 82.4 % (43.0-81.0); PLATELET COUNT (AUTO) 182 /CMM (150-450); RED BLOOD CELL COUNT(AUTO) 3.59 MIL/uL (4.0-5.2); WHITE BLOOD COUNT (AUTO) 7.9 K/uL (4.3-11.0)
[2019-11-11 08:45] LABS: CALCIUM, SERUM 9.5 mg/dL (8.5-10.1); POTASSIUM 4.1 mmol/L (3.5-5.1)
[2019-11-11 08:46] LABS: CREATININE 8.1 mg/dL (0.6-1.3)
[2019-11-11] MEDS: PANTOPRAZOLE 40 MG TABLET.DR PO SCH (09:00)
--- NOTE | 2019-11-11 13:53 | NUR ---
Patient AxO x1 to speech only. Attempted to feed patient breakfast and she refused. Tried to give medications with pudding and she refused. Tried to give lunch and patient refused. Spoke with conservator and she stated that patient is probably refusing care because she is in a new environment and with new cargivers. Reassured conservator that I will monitor patient and notify the doctor. Bed in lowest position. Call light in reach. Will continue to monitor patient.
--- NOTE | 2019-11-11 14:22 | NUR ---
Left doctor a message about patients refuses for medications and food.
--- NOTE | 2019-11-11 14:49 | NUR ---
Spoke with doctor about patients status. Gave doctor conservators contact information. Conservator: [employer] [phone]
[2019-11-11 18:33] LABS: HEMOGLOBIN 8.1 g/dL (11.5-14.8)
--- NOTE | 2019-11-11 19:18 | NUR ---
MS RN OPENING NOTES PATIENT SLEEPING IN BED. A/OX1 AND NONVERBAL. ON 2L NC. NO S/S OF ACUTE RESPIRATORY DISTRESS OR PAIN NOTED. IV PRESENT ON LEFT WRIST, SIZE 22, INTACT & PATENT, HEP LOCKED. IV PRESENT ON RIGHT LATERAL LEG, SIZE 18, INTACT & PATENT, HEP LOCKED. LEFT FEMORAL HD CATHETER PRESENT, INTACT & PATENT. SAFETY MEASURES IN PLACE AND PATIENT'S NEEDS MET. BED LOCKED, ALARM ON, SIDE RAILS X3, CALL LIGHT WITHIN REACH. WILL CONTINUE TO MONITOR.
[2019-11-11 20:00] VITALS: BP 138/64
[2019-11-11 20:15] VITALS: BP 138/64
--- NOTE | 2019-11-11 22:28 | NUR ---
MS RN NOTES PATIENT REFUSED SCHEDULED DOSE OF CARAFATE 1G PO AFTER MED WAS SCANNED AND OPENED. ATTEMPTED TO GIVE PATIENT CRUSHED MED WITH PUDDING, HOWEVER PATIENT KEPT REFUSING.
[2019-11-12] MEDS: ACETAMINOPHEN 650 MG/SUPP.RECT RC PRN ×2 (00:11→20:52)
--- NOTE | 2019-11-12 00:11 | NUR ---
MS RN NOTES PATIENT'S TEMP 100.5. PRN TYLENOL 650 MG SUPPOSITORY GIVEN TO PATIENT
[2019-11-12] MEDS: BLOOD SUGAR DIAGNOSTIC 1 EACH STRIP IN SCH ×4 (00:30→17:32)
[2019-11-12] MEDS ORDERED: IV D5/0.45 NACL 1,000 ML IV PRN ×2 (01:00→18:30)
--- NOTE | 2019-11-12 01:00 | NUR ---
MS RN NOTES PATIENT'S TEMP 98.8
[2019-11-12] MEDS: SUCRALFATE 1 G TABLET PO SCH ×4 (07:30→22:00)
--- NOTE | 2019-11-12 07:53 | NUR ---
MS RN CLOSING NOTES PATIENT SLEEPING IN BED. A/OX1 AND NONVERBAL. ON 2L NC. NO S/S OF ACUTE RESPIRATORY DISTRESS OR PAIN NOTED. IV PRESENT ON LEFT WRIST, SIZE 22, INTACT & PATENT, WITH D5NS RUNNING AT 60 ML/HR. IV PRESENT ON RIGHT LATERAL LEG, SIZE 18, INTACT & PATENT, HEP LOCKED. LEFT FEMORAL HD CATHETER PRESENT, INTACT & PATENT. SAFETY MEASURES IN PLACE AND PATIENT'S NEEDS MET. BED LOCKED, ALARM ON, SIDE RAILS X3. WILL ENDORSE TO DAY SHIFT NURSE PLAN OF CARE.
--- NOTE | 2019-11-12 07:53 | NUR ---
MS RN OPENING NOTE PATIENT IN BED RESTING COMFORTABLY. PATIENT IN NO ACUTE DISTRESS. NO SOB NOTED. PATIENT BREATHING IS EVEN AND UNLABORED. PATIENT BED ALARM IS ON. SAFETY PRECAUTIONS IN PLACE. HOB IS ELEVATED. NO FACIAL GRIMACING NOTED. PATIENT BED IS LOCKED AND IN LOWEST POSITION. CALL LIGHT WITHIN REACH. WILL CONTINUE TO MONITOR.
[2019-11-12 08:00] VITALS: BP 150/58
[2019-11-12] MEDS: NEPRO VAN 237 ML CAN PO SCH ×2 (08:00→17:00)
[2019-11-12 08:40] LABS: BASOPHILS % (AUTO) 0.2 % (0.0-2.0); EOSINOPHILS % (AUTO) 0.2 % (0.0-6.0); HEMATOCRIT 27 % (33-45); HEMOGLOBIN 8.8 g/dL (11.5-14.8); LYMPHOCYTES # (AUTO) 1.1 /CMM (0.8-4.8); LYMPHOCYTES % (AUTO) 13.4 % (20.0-44.0); MEAN CORPUSCULAR HGB CONC 33 g/dl (31.0-36.0); MEAN CORPUSCULAR VOLUME 89 fL (82-100); MONOCYTES # (AUTO) 0.6 /CMM (0.1-1.30); MONOCYTES % (AUTO) 7.1 % (2.0-12.0); NEUTROPHILS # (AUTO) 6.6 /CMM (1.8-8.9); NEUTROPHILS % (AUTO) 79.1 % (43.0-81.0); PLATELET COUNT (AUTO) 251 /CMM (150-450); RED BLOOD CELL COUNT(AUTO) 3.02 MIL/uL (4.0-5.2); WHITE BLOOD COUNT (AUTO) 8.3 K/uL (4.3-11.0)
[2019-11-12] MEDS: PANTOPRAZOLE 40 MG TABLET.DR PO SCH (08:52)
--- NOTE | 2019-11-12 08:52 | NUR ---
MS RN NOTE PATIENT REFUSING TO EAT FOOD AND TAKE AM MEDICATIONS. PATIENT REFUSES TO OPEN MOUTH. ENCOURAGED INTAKE AND EDUCATED RISKS VS BENEFITS. PATIENT UNABLE TO COMPREHEND. AND CONTINUED TO REFUSE MEDICATIONS AND FOOD.
[2019-11-12 09:08] LABS: ALBUMIN 2.8 g/dL (3.4-5.0); BILIRUBIN,TOTAL 0.6 mg/dL (0.2-1.0); CALCIUM, SERUM 9.5 mg/dL (8.5-10.1); MAGNESIUM 2.5 mg/dL (1.8-2.4); PHOSPHORUS 5.1 mg/dL (2.5-4.9); POTASSIUM 4.1 mmol/L (3.5-5.1)
[2019-11-12 09:09] LABS: CREATININE 10.4 mg/dL (0.6-1.3)
--- NOTE | 2019-11-12 12:14 | NUR ---
MS RN NOTE PATIENT BLOOD SUGAR IS 100. NO INSULIN COVERAGE NEED PER PROTOCOL. STEPHANIE FRAIRE AWARE PATIENT NOT EATING OR TAKING MEDICATION BY MOUTH. STEPHANIE AWARE OF PROCALCITONIN 5.14 AT THIS TIME. NO NEW ORDERS AT THIS TIME.
--- NOTE | 2019-11-12 12:15 | NUR ---
MS RN NOTE PER COLLIN FISHING VESSEL MATE. NO BLOOD TAKEN OUT DURING DIALYSIS. PATIENT TOLERATED DIALYSIS WELL. PATIENT IN NO ACUTE DISTRESS. WILL CONTINUE TO MONITOR.
--- NOTE | 2019-11-12 12:17 | NUR ---
MS RN NOTE PATIENT REFUSING TO TAKE 1200 DOSE SULCRAFATE. PATIENT REFUSING TO TAKE MEDICATION DESPITE ENCOURAGEMENT. PATIENT UNABLE TO COMPREHEND AND REFUSES.
[2019-11-12] MEDS ORDERED: VANCOMYCIN 1 GM in IV D5W 250ml IV ONE (14:00)
[2019-11-12 16:00] VITALS: BP 123/106
--- NOTE | 2019-11-12 17:33 | NUR ---
MS RN NOTE PATIENT BLOOD SUGAR IS 125. NO INSULIN NEEDED PER PROTOCOL.
--- NOTE | 2019-11-12 17:38 | NUR ---
MS RN NOTE PATIENT REFUSED TO TAKE NEPHRO SHAKE. PATIENT TOLERATED TAKING SUCRALFATE 1700 DOSE CRUSHED WITH PUDDING. Addendum: 11/12/19 at 1740 by SAMI MILLER RN MS ARCE NOTE PATIENT REFUSED TO TAKE NEPHRO SHAKE. PATIENT TOLERATED TAKING SUCRALFATE 1730 DOSE CRUSHED WITH PUDDING.
--- NOTE | 2019-11-12 18:31 | NUR ---
MS RN CLOSING NOTE PATIENT IN BED RESTING COMFORTABLY. PATIENT IN NO ACUTE DISTRESS. NO SOB NOTED. PATIENT BREATHING IS EVEN AND UNLABORED. PATIENT BED ALARM IS ON. SAFETY PRECAUTIONS IN PLACE. HOB IS ELEVATED. NO FACIAL GRIMACING NOTED. NOTIFIED STEPHANIE FRAIRE BUNCH BREAKER MACHINE OPERATOR OF PATIENT CONTINUED POOR INTAKE. PER STEPHANIE ORDER FOR D5 1/2 NS AT 75ML/HR. PATIENT KEPT CLEAN, DRY AND COMFORTABLE THROUGHOUT SHIFT. TURNED AND REPOSITIONED Q2H. PATIENT BED IS LOCKED AND IN LOWEST POSITION. CALL LIGHT WITHIN REACH. WILL ENDORSE CARE TO PM SHIFT FOR EMILY.
[2019-11-12 19:23] LABS: HEMOGLOBIN 8.3 g/dL (11.5-14.8)
[2019-11-12 20:10] VITALS: BP 118/71
[2019-11-13] MEDS: BLOOD SUGAR DIAGNOSTIC 1 EACH STRIP IN SCH ×5 (00:25→23:45)
[2019-11-13] MEDS ORDERED: VANCOMYCIN 500 MG in IV D5W 100 ML IV PRN (06:00)
--- NOTE | 2019-11-13 06:39 | NUR ---
MS RN NOTES AWAKE & NON VERBAL. RESPONDS TO TACTILE STIMULI. NOT IN ANY DISTRESS. NO SOB NOTED. NO S/SX OF ANY PAIN OR DISCOMFORT AT THIS TIME. WITH IVF INFUSING WELL. AM CARE DONE. MONITORED ACCORDINGLY. CALL LIGHT WITHIN REACH. BED IN LOWEST POSITION. SR UP X3 WITH BED ALARM ON FOR SAFETY. WILL ENDORSE TO NEXT SHIFT.
[2019-11-13 08:00] VITALS: BP 157/71
[2019-11-13] MEDS: PANTOPRAZOLE 40 MG TABLET.DR PO SCH (08:12)
[2019-11-13] MEDS: NEPRO VAN 237 ML CAN PO SCH ×2 (08:12→18:31)
[2019-11-13] MEDS: SUCRALFATE 1 G TABLET PO SCH ×4 (08:12→22:00)
[2019-11-13 08:46] LABS: ALBUMIN 2.7 g/dL (3.4-5.0); BILIRUBIN,TOTAL 0.7 mg/dL (0.2-1.0); CALCIUM, SERUM 8.8 mg/dL (8.5-10.1); MAGNESIUM 2.1 mg/dL (1.8-2.4); PHOSPHORUS 3.7 mg/dL (2.5-4.9); TOTAL PROTEIN, SERUM 7.8 g/dL (6.4-8.2)
[2019-11-13 08:48] LABS: CREATININE 7.9 mg/dL (0.6-1.3)
[2019-11-13 11:13] LABS: BASOPHILS % (AUTO) 0.1 % (0.0-2.0); EOSINOPHILS % (AUTO) 0.1 % (0.0-6.0); HEMATOCRIT 26 % (33-45); HEMOGLOBIN 8.5 g/dL (11.5-14.8); LYMPHOCYTES # (AUTO) 0.7 /CMM (0.8-4.8); LYMPHOCYTES % (AUTO) 7.2 % (20.0-44.0); MEAN CORPUSCULAR HGB CONC 33 g/dl (31.0-36.0); MEAN CORPUSCULAR VOLUME 88 fL (82-100); MONOCYTES # (AUTO) 0.6 /CMM (0.1-1.30); MONOCYTES % (AUTO) 6.4 % (2.0-12.0); NEUTROPHILS # (AUTO) 8.1 /CMM (1.8-8.9); NEUTROPHILS % (AUTO) 86.2 % (43.0-81.0); PLATELET COUNT (AUTO) 318 /CMM (150-450); RED BLOOD CELL COUNT(AUTO) 2.94 MIL/uL (4.0-5.2); WHITE BLOOD COUNT (AUTO) 9.4 K/uL (4.3-11.0)
--- NOTE | 2019-11-13 12:00 | NUR ---
Pacemani Boyle TRUCK SHOP SUPERVISOR notified that med recon hasn't done since admission
--- NOTE | 2019-11-13 15:44 | NUR ---
SW consult was requested by nursing staff due to the pt refusing medications and PO intake as well. SW met with the pt at bedside and attempted to evaluate her. Pt presented in bed with her mouth open and her tongue out. Pt presented with a flat affect and would not make eye contact with the SW. SW attempted to evaluate her orientation to begin but the pt refused to answer any questions. Psychiatric evaluation was requested but has not been done at this moment.
[2019-11-13 16:00] VITALS: BP 102/52
[2019-11-13 18:07] LABS: HEMOGLOBIN 8.3 g/dL (11.5-14.8)
--- NOTE | 2019-11-13 19:40 | NUR ---
PATIENT IN BED RESTING COMFORTABLY. PATIENT BREATHING IS EVEN AND UNLABORED ON O2 VIA nc 2L.SAFETY PRECAUTIONS IN PLACE. HOB IS ELEVATED. NO FACIAL GRIMACING NOTED. NOTIFIED STEPHANIE FRAIRE PERFORMANCE TESTER OF PATIENT CONTINUED POOR INTAKE. PATIENT KEPT CLEAN, DRY AND COMFORTABLE THROUGHOUT SHIFT. TURNED AND REPOSITIONED Q2H. PATIENT BED IS LOCKED AND IN LOWEST POSITION. CALL LIGHT WITHIN REACH. WILL ENDORSE CARE TO NEXT SHIFT FOR EMILY.
--- NOTE | 2019-11-13 19:55 | NUR ---
RN OPENING NOTES [facility]. FOUND Pt ASLEEP, RESTING IN BED. NO S/S OF ACUTE DISTRESS OR SOB NOTED. Pt IS NONVERBAL, CAN OPEN EYES AND TRACT, BUT WHEN ASKED QUESTIONS, BUT DOES NOT RESPOND. BUT RESPONDS TO TACTILE STIMULI AND WITHDRAWS FROM PAIN AND REPOSITIONING. LAST HD WAS DONE ON 11/11 WITH NO OUTPUT. HD CATH ACCESS LOCATED ON L FEM. IV ACCESS ON L WRIST #22G, SL. PER DAYSHI RN SOCIAL SERVICE IS ON CASE FOR Pt DUE TO Pt'S POOR PO INTAKE AND REFUSAL TO TAKE MEDS. SAFETY MEASURES IN PLACE. BED LOW, LOCKED, HOB ELEVATED, SIDE RAILS UP. BED ALARM ON. WILL CONTINUE TO MONITOR Pt's CONDITION AND SAFETY THROUGHOUT THE NIGHT.
[2019-11-13 20:36] VITALS: BP 120/57
[2019-11-13 21:00] VITALS: BP 120/57
--- NOTE | 2019-11-13 22:00 | NUR ---
RN NOTES S/B DR BIRD FOR PSYCH CONSULT, BUT SINCE Pt IS NONVERBAL, WAS UNABLE TO CARRY OUT PSYCH EVAL.
--- NOTE | 2019-11-13 23:11 | NUR ---
RN NOTES Pt IS REFUSING TO TAKE ANYTHING PO. OFFERED TONIA SHAKE, BUT Pt KEEPS HER MOUTH SHUT TIGHT, SHAKING HER HEAD. WHEN ATTEMPTING TO SPOON FEED HER, SHE SPITS IT OUT. TRIED MULTIPLE TIMES, BUT Pt KEPT KEEPING HER MOUTH SHUT TIGHT. Addendum: 11/14/19 at 0059 by TAURUS FLANAGAN RN WAS UNABLE TO GIVE HER SCHEDULED PO MEDS.
[2019-11-14] MEDS: BLOOD SUGAR DIAGNOSTIC 1 EACH STRIP IN SCH ×4 (06:19→23:34)
--- NOTE | 2019-11-14 06:30 | NUR ---
RN NOTES BG 94. NO INSULIN COVERAGE NEEDED AT THIS TIME.
--- NOTE | 2019-11-14 07:00 | NUR ---
RN CLOSING NOTES NO SIGNIFICANT CHANGES IN Pt's CONDITION. Pt REMAINED STABLE DURING THE NIGHT. NO S/S OF ACUTE DISTRESS OR SOB NOTED DURING THE SHIFT. ALL NEEDS MET AND ATTENDED TO. SAFETY MEASURES IN PLACE. BED ALARM ON. Pt IS RESTING COMFORTABLY IN BED. WILL ENDORSE TO DAYSHIFT RN FOR Pt's EMILY.
--- NOTE | 2019-11-14 07:30 | NUR ---
MS/RN NOTE THE PATIENT IS RECEIVED IN BED. PATIENT A/O X0 AND NON-VERBAL. RECEIVING OXYGEN AT 2L/MIN VIA NASAL CANNULA. NO MANIFESTATION OF SOB OR ANY DISTRESS NOTED. [place] CATH PRESENT WITH NO OUTPUT. NO BLADDER DISTENSION NOTED. LEFT WRITS G 22 PATENT, RLE G 18 PATENT AND SALINE LOCKED. LEFT FEMORAL HD CATH PRESENT. BED LOW AND LOCKED. SIDE RAILS UP X3. CALL LIGHT WITHIN REACH. WILL CONTINUE TO MONITOR.
[2019-11-14 08:00] VITALS: BP 154/67
--- NOTE | 2019-11-14 08:44 | NUR ---
MS/RN NOTE ANTONY FRAIRE IS AWARE THAT THE PATIENT DOES NOT HAVE TEETH AND THE PATIENT IS ON MECHANICAL SOFT DIET RECEIVED NEW ORDER OF RENAL STANDARD PUREED DIET NOTED AND CARRIED OUT
[2019-11-14] MEDS: PANTOPRAZOLE 40 MG TABLET.DR PO SCH (09:22)
[2019-11-14] MEDS: SUCRALFATE 1 G TABLET PO SCH ×4 (09:22→22:23)
[2019-11-14] MEDS: NEPRO VAN 237 ML CAN PO SCH ×2 (09:58→17:00)
[2019-11-14 11:35] LABS: BASOPHILS % (AUTO) 0.2 % (0.0-2.0); EOSINOPHILS % (AUTO) 0.5 % (0.0-6.0); HEMATOCRIT 26 % (33-45); HEMOGLOBIN 8.4 g/dL (11.5-14.8); LYMPHOCYTES # (AUTO) 0.8 /CMM (0.8-4.8); LYMPHOCYTES % (AUTO) 7.2 % (20.0-44.0); MEAN CORPUSCULAR HGB CONC 32 g/dl (31.0-36.0); MEAN CORPUSCULAR VOLUME 90 fL (82-100); MONOCYTES # (AUTO) 0.6 /CMM (0.1-1.30); MONOCYTES % (AUTO) 5.9 % (2.0-12.0); NEUTROPHILS # (AUTO) 9.5 /CMM (1.8-8.9); NEUTROPHILS % (AUTO) 86.2 % (43.0-81.0); PLATELET COUNT (AUTO) 357 /CMM (150-450); RED BLOOD CELL COUNT(AUTO) 2.92 MIL/uL (4.0-5.2); WHITE BLOOD COUNT (AUTO) 11.1 K/uL (4.3-11.0)
[2019-11-14 11:39] LABS: ALBUMIN 2.6 g/dL (3.4-5.0); BILIRUBIN,TOTAL 0.7 mg/dL (0.2-1.0); CALCIUM, SERUM 8.9 mg/dL (8.5-10.1); MAGNESIUM 2.2 mg/dL (1.8-2.4); PHOSPHORUS 4.2 mg/dL (2.5-4.9); POTASSIUM 3.8 mmol/L (3.5-5.1); TOTAL PROTEIN, SERUM 7.8 g/dL (6.4-8.2)
[2019-11-14 11:44] LABS: CREATININE 9.6 mg/dL (0.6-1.3)
[2019-11-14] MEDS: ALBUMIN 25% 25 GM in PREMIX 1 EA IV PRN (14:00)
[2019-11-14 15:59] VITALS: BP_SYST 128; BP_SYST 98; BP_DIAS 50; BP_DIAS 69
--- NOTE | 2019-11-14 17:00 | NUR ---
MS/RN NOTE THE PATIENT DIALYZED WITH 500 ML REMOVED. PATIENT TOLERATED DIALYSIS WELL.
--- NOTE | 2019-11-14 18:04 | NUR ---
MS/RN NOTE THE PATIENT IS IN BED.ALERT AND ORIENTED X0. RECEIVING OXYGEN AT 2L/MIN VIA NASAL CANNULA AND SATURATION IS AT 97%. NO MANIFESTATION OF DISTRESS NOTED. [place] CATH IN PLACE. LEFT WRIST G 22 PATENT AND SALINE LOCKED. LEFT FEMORAL HD CATH IN PLACE. BED LOW AND LOCKED. SIDE RAILS UP X3. CALL LIGHT WITHIN REACH. WILL ENDORSE TO CUSTOMER RELATIONS SPECIALIST.
--- NOTE | 2019-11-14 19:30 | NUR ---
MS RN NOTES PATIENT RECEIVED RESTING IN BED, ALERT AND ORIENTED X 0, NON-VERBAL, RESPONSIVE TO LIGHT TOUCH. ON NASAL CANNULA 2L, SPO2 SATURATION 94%, WITH EVEN NON-LABORED BREATHING, NO SIGNS OF RESPIRATORY DISTRESS AT THIS TIME, WITH EVEN NON-LABORED BREATHING. PATIENT IV ACCESS INTACT AND PATENT. [place] CATHETER IN PLACE. SAFETY PRECAUTIONS IN PLACE WITH BED IN THE LOWEST POSITION, BED LOCKED, BED ALARM ON, BILATERAL SIDE RAILS UP, BED ALARM ON, AND CALL LIGHT WITHIN EASY REACH OF PATIENT. WILL CONTINUE TO MONITOR PATIENT.
[2019-11-14 19:35] LABS: HEMOGLOBIN 7.1 g/dL (11.5-14.8)
[2019-11-14 20:00] VITALS: BP 120/56
[2019-11-15] VITALS (7 sets, daily range): BP systolic 110–136; BP diastolic 50–95
[2019-11-15] MEDS: ACETAMINOPHEN 325 MG TABLET PO PRN (02:19)
--- NOTE | 2019-11-15 02:19 | NUR ---
MS RN NOTES PATIENT'S TEMPERATURE, AXILLARY, 100.1 F. INITIATED COOLING MEASURES AND ADMINISTERED PRN TYLENOL 650MG PO. WILL RE-ASSESS PATIENT TEMPERATURE, AND WILL CONTINUE TO MONITOR.
--- NOTE | 2019-11-15 04:30 | NUR ---
MS RN NOTES PATIENT'S Hgb 7.1 HCT 21, NOTIFIED DR MUELLER AND ORDERED 1 UNIT OF PRBCs. WILL CONTINUE TO MONITOR PATIENT AT THIS TIME.
[2019-11-15] MEDS: BLOOD SUGAR DIAGNOSTIC 1 EACH STRIP IN SCH ×4 (05:41→23:46)
--- NOTE | 2019-11-15 06:54 | NUR ---
MS RN NOTES PATIENT IN BED SLEEPING, ON NASAL CANNULA, 2L TOLERATING OXYGEN WELL, WITH NO SIGNS OF RESPIRATORY DISTRESS AND WITH EVEN NON-LABORED BREATHING. PATIENT IV ACCESS IN PLACE AND PATENT. SKIN KEPT CLEAN AND DRY. [place] CATHETER IN PLACE. PROVIDED COMFORT MEASURES TO PATIENT, NO SIGNS OF DISCOMFORT OR PAIN. SAFETY PRECAUTIONS IN PLACE WITH BED LOCKED, BED IN THE LOWEST POSITION, BED ALARM ON, BILATERAL SIDE RAILS UP, AND CALL LIGHT WITHIN EASY REACH OF THE PATIENT, WILL ENDORSE PLAN OF CARE TO UPCOMING DAYSHIFT NURSE.
[2019-11-15 07:52] LABS: BASOPHILS % (AUTO) 0.2 % (0.0-2.0); EOSINOPHILS % (AUTO) 2.8 % (0.0-6.0); HEMATOCRIT 24 % (33-45); HEMOGLOBIN 7.6 g/dL (11.5-14.8); LYMPHOCYTES # (AUTO) 1.3 /CMM (0.8-4.8); LYMPHOCYTES % (AUTO) 11.1 % (20.0-44.0); MEAN CORPUSCULAR HGB CONC 32 g/dl (31.0-36.0); MEAN CORPUSCULAR VOLUME 91 fL (82-100); MONOCYTES # (AUTO) 0.9 /CMM (0.1-1.30); MONOCYTES % (AUTO) 7.8 % (2.0-12.0); NEUTROPHILS # (AUTO) 9.1 /CMM (1.8-8.9); NEUTROPHILS % (AUTO) 78.1 % (43.0-81.0); PLATELET COUNT (AUTO) 307 /CMM (150-450); RED BLOOD CELL COUNT(AUTO) 2.63 MIL/uL (4.0-5.2); WHITE BLOOD COUNT (AUTO) 11.7 K/uL (4.3-11.0)
[2019-11-15 08:04] LABS: CALCIUM, SERUM 8.9 mg/dL (8.5-10.1); CREATININE 6.5 mg/dL (0.6-1.3); POTASSIUM 4.2 mmol/L (3.5-5.1)
[2019-11-15] MEDS: PANTOPRAZOLE 40 MG TABLET.DR PO SCH (09:01)
[2019-11-15] MEDS: SUCRALFATE 1 G TABLET PO SCH ×4 (09:02→21:55)
[2019-11-15] MEDS: NEPRO VAN 237 ML CAN PO SCH ×2 (09:30→17:00)
--- NOTE | 2019-11-15 15:43 | NUR ---
MS/RN NOTE 1 UNIT OF PRBC ORDER IS REENTERED BECAUSE ON THE PRIOR ORDER CONSENT PART WAS SELECTED NO DESPITE THAT THERE IS A CONSENT FOR TRANSFUSION. NEW ORDER IS ENTERED PER ANTONY FRAIRE.
--- NOTE | 2019-11-15 18:33 | NUR ---
MS/RN NOTE THE PATIENT IN BED. A/O X0, MAINTAINS BASELINE MENTAL STATUS. LEFT WRIST G 22 PATENT AND SALINE LOCKED. RLE G 18 PATENT AND SALINE LOCKED. LEFT FEMORAL HD CATH PRESENT. PATIENT TOLERATED 1 UNIT PRBC WELL. NO ADVERSE EFFECTS NOTED. BED LOW AND LOCKED. SIDE RAILS UP X3. CALL LIGHT WITHIN REACH. WILL ENDORSE TO PRODUCTION TECH.
--- NOTE | 2019-11-15 19:41 | NUR ---
MS RN NOTES PATIENT RECEIVED IN BED RESTING. ALERT AND ORIENTED X 0, NON-VERBAL AND RESPONSIVE TO LIGHT TOUCH. PATIENT ON NASAL CANNULA, TOLERATING 3L, WITH NO SIGNS OF RESPIRATORY DISTRESS AT THIS TIME, WITH EVEN NON-LABORED BREATHING. [place] CATHETER IN PLACE, WILL CONTINUE TO MONITOR OUTPUT. IV ACCESS IN PLACE, INTACT AND PATENT. SKIN WARM AND DRY TO TOUCH. SAFETY PRECAUTIONS IN PLACE WITH BED LOCKED, BED IN THE LOWEST POSITION, BILATERAL SIDE RAILS UP, BED ALARM ON AND CALL LIGHT WITHIN EASY REACH OF THE PATIENT. WILL CONTINUE TO MONITOR PATIENT.
[2019-11-16] MEDS: BLOOD SUGAR DIAGNOSTIC 1 EACH STRIP IN SCH ×4 (06:02→23:50)
--- NOTE | 2019-11-16 06:22 | NUR ---
MS RN NOTES PATIENT IN BED SLEEPING. AWAKEN BY LIGHT TOUCH. ON NASAL CANNULA, TOLERATING OXYGEN WELL, WITH NO SIGNS OF RESPIRATORY DISTRESS AND WITH EVEN NON-LABORED BREATHING. IV ACCESS IN PLACE AND PATENT. SKIN KEPT CLEAN AND DRY. [place] CATHETER IN PLACE. PATIENT PRESENTS NO SIGNS OF DISCOMFORT OR PAIN. PROVIDED COMFORT MEASURES TO PATIENT. SAFETY PRECAUTIONS IN PLACE WITH BED LOCKED, BED IN THE LOWEST POSITION, BED ALARM ON, BILATERAL SIDE RAILS UP, AND CALL LIGHT WITHIN EASY REACH OF THE PATIENT. WILL ENDORSE PLAN OF CARE TO UPCOMING DAYSHIFT NURSE.
[2019-11-16 07:50] LABS: ALBUMIN 2.8 g/dL (3.4-5.0); BILIRUBIN,TOTAL 0.6 mg/dL (0.2-1.0); MAGNESIUM 1.9 mg/dL (1.8-2.4); PHOSPHORUS 2.8 mg/dL (2.5-4.9); POTASSIUM 3.3 mmol/L (3.5-5.1); TOTAL PROTEIN, SERUM 7.7 g/dL (6.4-8.2)
[2019-11-16 07:53] LABS: BASOPHILS % (AUTO) 0.2 % (0.0-2.0); EOSINOPHILS % (AUTO) 0.8 % (0.0-6.0); HEMATOCRIT 31 % (33-45); HEMOGLOBIN 9.9 g/dL (11.5-14.8); LYMPHOCYTES # (AUTO) 1.1 /CMM (0.8-4.8); LYMPHOCYTES % (AUTO) 9.4 % (20.0-44.0); MEAN CORPUSCULAR HGB CONC 32 g/dl (31.0-36.0); MEAN CORPUSCULAR VOLUME 91 fL (82-100); MONOCYTES # (AUTO) 0.9 /CMM (0.1-1.30); MONOCYTES % (AUTO) 7.8 % (2.0-12.0); NEUTROPHILS # (AUTO) 9.2 /CMM (1.8-8.9); NEUTROPHILS % (AUTO) 81.8 % (43.0-81.0); PLATELET COUNT (AUTO) 300 /CMM (150-450); WHITE BLOOD COUNT (AUTO) 11.3 K/uL (4.3-11.0)
[2019-11-16 08:00] VITALS: BP 144/69
[2019-11-16] MEDS: SUCRALFATE 1 G TABLET PO SCH ×4 (09:03→21:37)
[2019-11-16] MEDS: PANTOPRAZOLE 40 MG TABLET.DR PO SCH (09:03)
[2019-11-16] MEDS: NEPRO VAN 237 ML CAN PO SCH ×2 (09:10→16:49)
[2019-11-16] MEDS ORDERED: SUCR1TAB PO (12:40)
[2019-11-16] MEDS ORDERED: VANC500F2 IV (12:40)
--- NOTE | 2019-11-16 15:20 | NUR ---
PATIENT CLEARED FOR D/C BY MD TO [facility]. D/C PAPERS ARE READY. WILL COMMUNICATE WITH CM ABOUT PROTECTION AGENT TIME.
[2019-11-16 16:00] VITALS: BP 74/61
[2019-11-16] MEDS: CLONIDINE HCL 0.1MG/24H PTWK 1 EA PATCH TD SCH (16:50)
--- NOTE | 2019-11-16 17:20 | NUR ---
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
--- NOTE | 2019-11-16 18:46 | NUR ---
PATIENT STABLE, REMAINS POOR APPETITE.ONGOING HD AT BEDSIDE. ALBUMIN ADMINISTRATED. IV LINE FLUSHING WELL. NO URINE OUTPUT. PATIENT KEPT COMFORTABLE, ALL NEEDS ATTENDED. SAFETY PRECAUTIONS IMPLEMENTED. WILL ENDORSE TO NEXT SHIFT FOR EMILY.
[2019-11-16] MEDS: ALBUMIN 25% 25 GM in PREMIX 1 EA IV PRN (18:52)
--- NOTE | 2019-11-16 19:20 | NUR ---
MS RN NOTES PATIENT RECEIVED IN BED, RECEIVING HD AT THIS TIME. ALERT AND ORIENTED X 0, PATIENT NON-VERBAL, RESPONSIVE TO LIGHT TOUCH. ON NASAL CANNULA 2L, WITH NO SIGNS OF RESPIRATORY DISTRESS, WITH EVEN NON-LABORED BREATHING. PATIENT SKIN WARM AND DRY TO TOUCH. IV ACCESS IN PLACE AND INTACT. [place] CATHETER IN PLACE AND INTACT. NO SIGNS OF PAIN OR DISCOMFORT AT THIS TIME. SAFETY PRECAUTIONS IN PLACE WITH BED LOCKED, BED IN THE LOWEST POSITION, BED ALARM ON, BILATERAL SIDE RAILS UP, AND CALL LIGHT WITHIN EASY REACH OF THE PATIENT, WILL CONTINUE TO MONITOR PATIENT.
--- NOTE | 2019-11-16 19:40 | NUR ---
MS RN NOTES PATIENT'S HEMODIALYSIS ENDED, WITH 500mL OUTPUT. WILL CONTINUE TO MONITOR PATIENT.
[2019-11-17] MEDS: BLOOD SUGAR DIAGNOSTIC 1 EACH STRIP IN SCH (05:43)
--- NOTE | 2019-11-17 06:38 | NUR ---
MS RN NOTES PATIENT IN BED, RESTING COMFORTABLY. ON NASAL CANNULA, 2L, WITH NO SIGNS OF RESPIRATORY DISTRESS AT THIS TIME, NO SIGNS OF SOB, WITH EVEN NON-LABORED BREATHING. PATIENT KEPT CLEAN AND DRY. IV ACCESS IN PLACE, INTACT AND PATENT. [place] CATHETER IN PLACE. MET ALL OF PATIENT'S NEEDS. PRESENTS NO SIGNS OF PAIN OR DISCOMFORT AT THIS TIME, PROVIDED COMFORT MEASURES TO PATIENT.SAFETY PRECAUTIONS IN PLACE WITH BED LOCKED, BED ALARM ON, BED IN THE LOWEST POSITION, BILATERAL SIDE RAILS UP AND CALL LIGHT WITHIN EASY REACH OF THE PATIENT. WILL ENDORSE PLAN OF CARE TO UPCOMING DAYSHIFT NURSE.
--- NOTE | 2019-11-17 07:47 | NUR ---
rn opening notes Patient received on 2L nasal cannula, no sob noted, patient shows no s/s of pain at this time. R[place]y with little output noted. L wrist 22 RLE 18, L femoral HD cath. Renal pureed diet, bed at the lowest setting, call light within reach, side rails up x2.
[2019-11-17 08:00] VITALS: BP 116/65
[2019-11-17] MEDS: NEPRO VAN 237 ML CAN PO SCH (08:05)
[2019-11-17] MEDS: SUCRALFATE 1 G TABLET PO SCH (08:05)
[2019-11-17] MEDS: PANTOPRAZOLE 40 MG TABLET.DR PO SCH (08:05)
--- NOTE | 2019-11-17 11:37 | NUR ---
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 Patient discharged at this time. Vital signs stable, no sob noted, patient shows no s/s of pain at this time. No belongings on file. Left patient with L wrist 22 and RLE 18 IV lines due to IV abx prescribed, also with L femoral HD perma cath. admitting RN aware of the lines that is present. Patient has all paper work with her. Patient taken by EMT and has all of her paperwork.
== END 2019-11-17 11:35 | DRG 919 ==
LOC: ER 15:40 → TELE1 21:07 → TELE-TD 21:56 → TELE1 11-05 07:59 → MED 11-07 01:23
PROVIDERS: ADMIT Nurse Practitioner Acute Care; ATTEND Hospitalist
PROC: 5A1D70Z Performance of Urinary Filtration, Intermittent, Less than 6 Hours Per Day (ICD-10-PCS; principal; 2019-11-06)
PROC: 0DB58ZX Excision of Esophagus, Via Natural or Artificial Opening Endoscopic, Diagnostic (ICD-10-PCS; 2019-11-09)
PROC: 0DB68ZX Excision of Stomach, Via Natural or Artificial Opening Endoscopic, Diagnostic (ICD-10-PCS; 2019-11-09)
PROC: 30233N1 Transfusion of Nonautologous Red Blood Cells into Peripheral Vein, Percutaneous Approach (ICD-10-PCS; 2019-11-15)
DX: T85.79XA Infection and inflammatory reaction due to other internal prosthetic devices, implants and grafts, initial encounter (principal); A41.9 Sepsis, unspecified organism; I21.4 Non-ST elevation (NSTEMI) myocardial infarction; N18.6 End stage renal disease; R53.2 Functional quadriplegia; G93.41 Metabolic encephalopathy; E87.1 Hypo-osmolality and hyponatremia; D68.59 Other primary thrombophilia; I13.2 Hypertensive heart and chronic kidney disease with heart failure and with stage 5 chronic kidney disease, or end stage renal disease; G93.40 Encephalopathy, unspecified; D61.818 Other pancytopenia; E44.0 Moderate protein-calorie malnutrition; I50.32 Chronic diastolic (congestive) heart failure; N39.0 Urinary tract infection, site not specified; E11.22 Type 2 diabetes mellitus with diabetic chronic kidney disease; D69.6 Thrombocytopenia, unspecified; Z66 Do not resuscitate; F41.9 Anxiety disorder, unspecified; Z86.73 Personal history of transient ischemic attack (TIA), and cerebral infarction without residual deficits; Z99.2 Dependence on renal dialysis; Y84.9 Medical procedure, unspecified as the cause of abnormal reaction of the patient, or of later complication, without mention of misadventure at the time of the procedure; Y92.9 Unspecified place or not applicable; K21.0 Gastro-esophageal reflux disease with esophagitis; K29.70 Gastritis, unspecified, without bleeding; Z86.718 Personal history of other venous thrombosis and embolism; D50.9 Iron deficiency anemia, unspecified; Z79.4 Long term (current) use of insulin; Z79.51 Long term (current) use of inhaled steroids; Z79.899 Other long term (current) drug therapy; E78.5 Hyperlipidemia, unspecified; E87.5 Hyperkalemia; F03.90 Unspecified dementia, unspecified severity, without behavioral disturbance, psychotic disturbance, mood disturbance, and anxiety; F32.9 Major depressive disorder, single episode, unspecified; Z74.01 Bed confinement status; D63.1 Anemia in chronic kidney disease; F17.200 Nicotine dependence, unspecified, uncomplicated; I25.10 Atherosclerotic heart disease of native coronary artery without angina pectoris; I48.91 Unspecified atrial fibrillation; K44.9 Diaphragmatic hernia without obstruction or gangrene; K59.00 Constipation, unspecified; Z79.01 Long term (current) use of anticoagulants; K83.8 Other specified diseases of biliary tract; E11.51 Type 2 diabetes mellitus with diabetic peripheral angiopathy without gangrene
CPT/HCPCS: 36415; 36600; 71045-TC; 74018; 80048-TC; 80053-TC; 80061-TC; 80202-TC; 81000-TC; 82550-TC; 82728-TC; 82803-TC; 82962-TC; 83540-TC; 83605-TC; 83615-TC; 83735-TC; 83880; 84100-TC; 84484-TC; 85025-TC; 85027-TC; 85378-TC; 85730-TC; 86140-TC; 86706; 86850-TC; 86921-TC; 87040-TC; 87086-TC; 87340; 88305-TC; 88312-TC; 88313-TC; 90935-TC; 93307-TC; A4216; C9113; G0378; J0692; J0696; J0885; J2405; J2704; J3370; J3490; J7030; J7050; J7060; P9016-BL; P9047

== ENCOUNTER 2025-05-08 10:16 | Inpatient (IN) | payer MEDICARE, OTHER ==
[~2025-05-08] VITALS: Ht 170.2 cm; Wt 72.6 kg
[~2025-05-08 10:16] MED LIST changes: +APIX5TAB PO; -BENA20TA9 PO; +CHOL400T11 PO; -CLON0.2T PO; +CLON1PAT TD; +DEXT15DR6 OP; -DIPH-4 PO; -DOCU100C36 PO; -DOCU100T2 PO; +FOLI0.8C PO; -FOLI1TAB16 PO; -HYDR-4077 PO; +INSU100V42; -IPRA3AMP22 IH; -LORA-259 PO; -OMEP20CA15 PO; +POLY17PO4 PO; +QUET25TA PO; -RIFA300C4 PO; +SEVE2.4P PO; +SUCR1TAB PO; +VANC500F2 IV
[2025-05-08 11:19] LABS: PLATELET COUNT (AUTO) 175 K/uL (150-450); RED BLOOD CELL COUNT(AUTO) 3.65 MIL/uL (4.0-5.2); RED CELL DISTRIBUTION WIDTH 15.1 % (11.5-15.0); WHITE BLOOD COUNT (AUTO) 6.5 K/uL (4.3-11.0)
[2025-05-08] MEDS ORDERED: ONDANSETRON HCL/PF 4 MG/2 ML VIAL IVP PRN (11:30)
[2025-05-08] MEDS ORDERED: MAGNESIUM HYDROXIDE 30 ML UDC PO PRN (11:30)
[2025-05-08] MEDS ORDERED: MAG HYDROX/AL HYDROX/SIMETH 30 ML UDC PO PRN (11:30)
[2025-05-08] MEDS ORDERED: DEXTROSE 50%-WATER 50 ML DISP.SYRIN IV PRN (11:30)
[2025-05-08 11:33] LABS: INR 1.14 (0.91-1.10)
[2025-05-08 11:36] LABS: ASPARTATE AMINOTRANSFERASE 14.0 U/L (15-37); CALCIUM, SERUM 7.9 mg/dL (8.5-10.1); SODIUM SERUM 138.0 mmol/L (136-145); TOTAL PROTEIN, SERUM 8.0 g/dL (6.4-8.2); UREA NITROGEN, BLOOD 47.0 mg/dL (7-18)
[2025-05-08 11:38] LABS: CREATININE 8.8 mg/dL (0.6-1.3)
[2025-05-08] MEDS ORDERED: SODIUM BICARBONATE SYR 50 MEQ/50 ML DISP.SYRIN IV ONE (12:30)
[2025-05-08] MEDS ORDERED: ALBUTEROL FS 2.5 MG/3 ML VIAL.NEB NEB ONE (12:30)
[2025-05-08] MEDS: SODIUM POLYSTYRENE SULFONATE 15 G/60 ML BOTTLE PO ONE (15:59)
[2025-05-08] MEDS ORDERED: SODIUM POLYSTYRENE SULFONATE 15 G/60 ML BOTTLE PO ONE (16:00)
[2025-05-08] MEDS: DEXTROSE 50%-WATER 50 ML DISP.SYRIN IVP ONE (16:15)
[2025-05-08] MEDS: INSULIN REGULAR, HUMAN 100 UNIT/ML 10 ML VIAL IV ONE (16:16)
[2025-05-08] MEDS: BLOOD SUGAR DIAGNOSTIC 1 EACH STRIP IN SCH (16:16)
[2025-05-08 18:16] LABS: CALCIUM, SERUM 7.5 mg/dL (8.5-10.1); SODIUM SERUM 136.0 mmol/L (136-145); UREA NITROGEN, BLOOD 52.0 mg/dL (7-18)
[2025-05-08 18:20] LABS: PHOSPHORUS 3.2 mg/dL (2.5-4.9)
[2025-05-08 18:21] LABS: CREATININE 9.2 mg/dL (0.6-1.3)
[2025-05-08 20:00] VITALS: BP 118/69; TEMP 98.1
[2025-05-08] MEDS ORDERED: IOHEXOL 0 ML IV ONE (20:41)
[2025-05-08] MEDS ORDERED: HEPARIN SODIUM, PORCINE 1,000 UNIT/ML VIAL ONE (20:42)
[2025-05-08] MEDS ORDERED: LIDOCAINE HCL/MPF 1% 30 ML VIAL IJ ONE (20:42)
[2025-05-08] MEDS ORDERED: ANESTHESIA TRAY IN PYXIS 1 EA TRAY MC ONE (20:42)
[2025-05-08] MEDS ORDERED: FENTANYL PF 100MCG/2ML AMPUL ONE (20:49)
[2025-05-08] MEDS ORDERED: BACITRACIN ZINC OINT (15 GM) 15 GM TUBE TP ONE (21:24)
[2025-05-08 22:10] VITALS: BP 130/66; TEMP 97.8; O2SAT 95
[2025-05-08] MEDS ORDERED: CEFAZOLIN 1 GM VIAL IV SCH (22:30)
[2025-05-08] MEDS ORDERED: CEFAZOLIN 2 GM in IV D5W 100 ML IV ONE (23:00)
[2025-05-09] MEDS: ACETAMINOPHEN 325 MG TABLET PO PRN (00:46)
[2025-05-09] MEDS ORDERED: CEFAZOLIN 1 GM in IV D5W 50 ML IV ONE (02:00)
[2025-05-09 04:00] VITALS: BP 99/58; TEMP 97.9; O2SAT 95
[2025-05-09 06:52] LABS: PLATELET COUNT (AUTO) 163 K/uL (150-450); RED BLOOD CELL COUNT(AUTO) 3.31 MIL/uL (4.0-5.2); RED CELL DISTRIBUTION WIDTH 14.8 % (11.5-15.0); WHITE BLOOD COUNT (AUTO) 6.0 K/uL (4.3-11.0)
[2025-05-09] MEDS: INSULIN REGULAR, HUMAN 100 UNIT/ML 3 ML VIAL SQ PRN (07:06)
[2025-05-09 07:09] LABS: CALCIUM, SERUM 7.9 mg/dL (8.5-10.1); CREATININE 6.7 mg/dL (0.6-1.3); PHOSPHORUS 3.3 mg/dL (2.5-4.9); SODIUM SERUM 141.0 mmol/L (136-145); UREA NITROGEN, BLOOD 30.0 mg/dL (7-18)
[2025-05-09 08:00] VITALS: BP 97/49; TEMP 98.1; O2SAT 97
[2025-05-09] MEDS: PANTOPRAZOLE 40 MG VIAL IV SCH (08:52)
[2025-05-09] MEDS: ANCEF 1 GM/50 ML D5W IV SCH (09:25)
[2025-05-09] MEDS: MIDODRINE HCL (5MG) 5 MG TABLET PO SCH ×2 (11:17→16:30)
[2025-05-09 16:00] VITALS: BP 95/44; TEMP 98.6; O2SAT 97
[2025-05-09 20:00] VITALS: BP 105/51; TEMP 96.8; O2SAT 100
[2025-05-09] MEDS ORDERED: ANCEF 1 GM/50 ML D5W IV ONE (23:00)
[2025-05-10 04:00] VITALS: BP 105/50; TEMP 97; O2SAT 100
[2025-05-10 06:56] LABS: PLATELET COUNT (AUTO) 178 K/uL (150-450); RED BLOOD CELL COUNT(AUTO) 3.44 MIL/uL (4.0-5.2); RED CELL DISTRIBUTION WIDTH 14.9 % (11.5-15.0); WHITE BLOOD COUNT (AUTO) 6.0 K/uL (4.3-11.0)
[2025-05-10 07:17] LABS: CALCIUM, SERUM 7.8 mg/dL (8.5-10.1); PHOSPHORUS 3.9 mg/dL (2.5-4.9); SODIUM SERUM 139.0 mmol/L (136-145); UREA NITROGEN, BLOOD 39.0 mg/dL (7-18)
[2025-05-10 07:27] LABS: CREATININE 8.0 mg/dL (0.6-1.3)
[2025-05-10] MEDS: PANTOPRAZOLE 40 MG TABLET.DR PO SCH (09:30)
[2025-05-10] MEDS ORDERED: APIX2.5T PO (12:27)
[2025-05-10] MEDS ORDERED: AMIN30LI2 PO (12:27)
[2025-05-10] MEDS ORDERED: GLUC1KIT IM (12:27)
[2025-05-10] MEDS ORDERED: MIDO5TAB4 PO (12:27)
[2025-05-10] MEDS ORDERED: METO25TA20 PO (12:27)
[2025-05-10] MEDS ORDERED: NA P133E RC (12:27)
[2025-05-10] MEDS ORDERED: SODI10PO PO (12:27)
[2025-05-10] MEDS ORDERED: ESCI5TAB PO (12:27)
[2025-05-10] MEDS ORDERED: CINA30TA6 PO (12:27)
[2025-05-10] MEDS ORDERED: BISA10SU11 RC (12:27)
[2025-05-10] MEDS ORDERED: INSU100I14 SQ (12:27)
[2025-05-10] MEDS ORDERED: CALC0.5C11 PO (12:27)
[2025-05-10] MEDS ORDERED: METO25TA6 PO (12:27)
[2025-05-10] MEDS ORDERED: FOLI0.8T23 PO (12:27)
[2025-05-10] MEDS ORDERED: SENN8.6T19 PO (12:27)
[2025-05-10] MEDS ORDERED: DOCU100C36 PO (12:27)
[2025-05-10] MEDS: ALBUMIN 25% 25 GM in PREMIX 1 EA IV PRN (13:51)
[2025-05-10 15:36] VITALS: BP 111/48; TEMP 97.7; O2SAT 99
[2025-05-10 16:23] VITALS: BP 148/88; TEMP 98.3; O2SAT 93
[2025-05-10] MEDS ORDERED: BISACODYL SUPP (10 MG) 10 MG/SUPP.RECT SUPP.RECT RC PRN (16:30)
[2025-05-10] MEDS: SEVELAMER CARBONATE 800 MG POWD.PACK PO SCH (18:31)
[2025-05-10] MEDS: APIXABAN 2.5 MG TABLET PO SCH (18:36)
[2025-05-10] MEDS: PROSOURCE / PROSTAT (PYXIS) 30 ML UDC PO SCH (19:16)
[2025-05-10 20:00] VITALS: BP 109/56; TEMP 98.4; O2SAT 99
[2025-05-11 04:00] VITALS: BP 122/56; TEMP 97.5; O2SAT 99
[2025-05-11 08:00] VITALS: BP 96/57; TEMP 98.1; O2SAT 99
[2025-05-11] MEDS: VITAMIN B COMP W-C 1 TAB TABLET PO SCH (09:52)
[2025-05-11] MEDS: SENNOSIDES 8.6 MG TABLET PO SCH (09:52)
[2025-05-11] MEDS: MIDODRINE HCL (5MG) 5 MG TABLET PO SCH (09:53)
[2025-05-11] MEDS: ESCITALOPRAM OXALATE (10 MG) 10 MG TABLET PO SCH (09:54)
[2025-05-11] MEDS: CINACALCET HCL 30 MG TABLET PO SCH (10:00)
[2025-05-11] MEDS ORDERED: Z GUARD REMEDY 4 OZ OINT TP PRN (10:30)
[2025-05-11 10:50] LABS: PLATELET COUNT (AUTO) 156 K/uL (150-450); RED BLOOD CELL COUNT(AUTO) 3.25 MIL/uL (4.0-5.2); RED CELL DISTRIBUTION WIDTH 14.7 % (11.5-15.0); WHITE BLOOD COUNT (AUTO) 6.7 K/uL (4.3-11.0)
[2025-05-11] MEDS: Z GUARD REMEDY 4 OZ OINT TP SCH (11:26)
[2025-05-11 11:37] LABS: CALCIUM, SERUM 8.3 mg/dL (8.5-10.1); PHOSPHORUS 3.7 mg/dL (2.5-4.9); SODIUM SERUM 139.0 mmol/L (136-145); UREA NITROGEN, BLOOD 40.0 mg/dL (7-18)
[2025-05-11 11:38] LABS: CREATININE 8.2 mg/dL (0.6-1.3)
[2025-05-11 16:00] VITALS: BP 110/61; TEMP 98.2; O2SAT 99
[2025-05-11] MEDS: CALCITRIOL 0.25 MCG CAPSULE PO SCH (17:56)
[2025-05-11 20:00] VITALS: BP 107/53; TEMP 98.6; O2SAT 96
[2025-05-12 04:00] VITALS: BP 85/67; TEMP 98.2; O2SAT 100
[2025-05-12 06:30] LABS: PLATELET COUNT (AUTO) 165 K/uL (150-450); RED BLOOD CELL COUNT(AUTO) 3.40 MIL/uL (4.0-5.2); RED CELL DISTRIBUTION WIDTH 14.6 % (11.5-15.0); WHITE BLOOD COUNT (AUTO) 6.5 K/uL (4.3-11.0)
[2025-05-12 06:37] LABS: CALCIUM, SERUM 7.5 mg/dL (8.5-10.1); PHOSPHORUS 3.3 mg/dL (2.5-4.9); SODIUM SERUM 139.0 mmol/L (136-145); UREA NITROGEN, BLOOD 56.0 mg/dL (7-18)
[2025-05-12 06:46] LABS: CREATININE 9.1 mg/dL (0.6-1.3)
[2025-05-12 08:00] VITALS: BP 96/59; TEMP 97.9; O2SAT 100
[2025-05-12] MEDS ORDERED: MIDO5TAB4 PO (10:53)
[2025-05-12 16:00] VITALS: BP 120/75; TEMP 98.2
[2025-05-12 20:00] VITALS: BP 111/51; TEMP 98.2; O2SAT 100
[2025-05-13 04:00] VITALS: BP 103/46; TEMP 99; O2SAT 97
[2025-05-13 08:00] VITALS: BP 124/62; TEMP 98.6; O2SAT 97
[2025-05-13 13:29] VITALS: BP 124/62
== END 2025-05-13 16:04 | DRG 674 ==
LOC: ER 10:37 → MEDSG1 13:00
PROVIDERS: ATTEND Nurse Practitioner Acute Care
PROC: 0JH63XZ Insertion of Tunneled Vascular Access Device into Chest Subcutaneous Tissue and Fascia, Percutaneous Approach (ICD-10-PCS; 2025-05-08)
PROC: 05PY33Z Removal of Infusion Device from Upper Vein, Percutaneous Approach (ICD-10-PCS; 2025-05-08)
PROC: 05H633Z Insertion of Infusion Device into Left Subclavian Vein, Percutaneous Approach (ICD-10-PCS; 2025-05-08)
PROC: B517YZA Fluoroscopy of Left Subclavian Vein using Other Contrast, Guidance (ICD-10-PCS; 2025-05-08)
PROC: 5A1D70Z Performance of Urinary Filtration, Intermittent, Less than 6 Hours Per Day (ICD-10-PCS; 2025-05-08)
PROC: 0JPV3XZ Removal of Tunneled Vascular Access Device from Upper Extremity Subcutaneous Tissue and Fascia, Percutaneous Approach (ICD-10-PCS; principal; 2025-05-08 19:00)
DX: T82.41XA Breakdown (mechanical) of vascular dialysis catheter, initial encounter (principal); D68.59 Other primary thrombophilia; I13.2 Hypertensive heart and chronic kidney disease with heart failure and with stage 5 chronic kidney disease, or end stage renal disease; I50.22 Chronic systolic (congestive) heart failure; G93.40 Encephalopathy, unspecified; N18.6 End stage renal disease; Y84.1 Kidney dialysis as the cause of abnormal reaction of the patient, or of later complication, without mention of misadventure at the time of the procedure; Y92.89 Other specified places as the place of occurrence of the external cause; I95.3 Hypotension of hemodialysis; Z74.01 Bed confinement status; E11.22 Type 2 diabetes mellitus with diabetic chronic kidney disease; E78.5 Hyperlipidemia, unspecified; Z99.2 Dependence on renal dialysis; K21.9 Gastro-esophageal reflux disease without esophagitis; Z88.3 Allergy status to other anti-infective agents; Z88.2 Allergy status to sulfonamides; Z86.718 Personal history of other venous thrombosis and embolism; Z79.4 Long term (current) use of insulin; Z79.01 Long term (current) use of anticoagulants; Z79.899 Other long term (current) drug therapy; Z86.73 Personal history of transient ischemic attack (TIA), and cerebral infarction without residual deficits; F41.9 Anxiety disorder, unspecified; F32.A Depression, unspecified; E87.5 Hyperkalemia; D64.9 Anemia, unspecified
CPT/HCPCS: 36415; 71045-TC; 80048-TC; 80076-TC; 82962-TC; 83735-TC; 84100-TC; 85025-TC; 85730-TC; 86317; 86850-TC; 87081-TC; 87340; 90935-TC; A4216; C1750; C1757; C1769; C1894; G0378; J0690; J1644; J1815; J2470; J2704; J3010; J3490; J7030; J7040; J7050; J7060; P9047; Q9967